=== PATIENT | female | born 1950 | race Caucasian/White ===

== ENCOUNTER → 2024-03-25 11:20 | Outpatient (REF) | payer MEDICARE, BC, SELFPAY ==
[2024-03-25 14:08] LABS: % Basophils 0.7 % (0-2); % Eosinophils 0.7 % (0-6); % Immature Granulocytes 0.4 % (0-0.5); % Lymphocytes 25.1 % (20.5-51.1); % Monocytes 9.4 % (1.7-9.3); % Neutrophils 63.7 % (42.2-75.2); Absolute Lymphocytes 1.4 10^3/uL (1.2-3.4); Absolute Monocytes 0.5 10^3/uL (0.1-0.6); Absolute Neutrophils 3.6 10^3/uL (1.4-6.5); Hemoglobin 13.9 g/dL (12.0-16.0); Mean Corp Hgb Conc. 33.1 g/dL (33.0-37.0); Mean Corpuscular Hgb 32.3 pg (27.0-31.0); Mean Corpuscular Volume 97.7 fL (81.0-99.0); Mean Platelet Volume 10.7 fL (7.4-10.4); Nucleated Red Blood Cells % 0 %; Platelet Count 248 10^3/uL (130-400); White Blood Cell Count 5.7 10^3/uL (4.8-10.8)
[2024-03-25 15:06] LABS: ALT (SGPT) 19 U/L (0-35); AST (SGOT) 28 U/L (14-36); Albumin 4.5 g/dl (3.5-5.0); Alkaline Phosphatase 92 U/L (38-126); Blood Urea Nitrogen 24 mg/dl (7-17); Carbon Dioxide 26 mmol/L (22-30); Chloride 104 mmol/L (98-107); Glucose 82 mg/dl (70-99); Potassium 4.3 mmol/L (3.5-5.1); Sodium 137 mmol/L (135-145); Total Bilirubin 0.8 mg/dl (0.2-1.3); Total Protein 7.3 g/dl (6.3-8.2); eGFR > 60.00
== END ==
LOC: PAVMRI 11:20
PROVIDERS: ATTENDING PHYSICIAN Internal Medicine Rheumatology; REFERRING PHYSICIAN Internal Medicine
DX: M25.561 Pain in right knee (principal); G62.9 Polyneuropathy, unspecified; M25.562 Pain in left knee; M79.641 Pain in right hand; M81.0 Age-related osteoporosis without current pathological fracture; Z51.81 Encounter for therapeutic drug level monitoring
CPT/HCPCS: 36415; 73721; 80053; 85025

== ENCOUNTER 2024-07-18 17:24 | Inpatient (IN) | payer MEDICARE, BC, SELFPAY ==
[2024-07-18 13:06] VITALS: BP 149/87
[2024-07-18 13:30] LABS: % Basophils 0.7 % (0-2); % Eosinophils 1.2 % (0-6); % Immature Granulocytes 0.3 % (0-0.5); % Lymphocytes 26.4 % (20.5-51.1); % Monocytes 10.7 % (1.7-9.3); % Neutrophils 60.7 % (42.2-75.2); Absolute Basophils 0.1 10^3/uL (0-0.2); Absolute Eosinophils 0.1 10^3/uL (0-0.7); Absolute Lymphocytes 1.8 10^3/uL (1.2-3.4); Absolute Monocytes 0.7 10^3/uL (0.1-0.6); Absolute Neutrophils 4.1 10^3/uL (1.4-6.5); Hematocrit 37.6 % (37.0-47.0); Hemoglobin 12.7 g/dL (12.0-16.0); Mean Corp Hgb Conc. 33.8 g/dL (33.0-37.0); Mean Corpuscular Hgb 32.2 pg (27.0-31.0); Mean Corpuscular Volume 95.4 fL (81.0-99.0); Mean Platelet Volume 10.1 fL (7.4-10.4); Nucleated Red Blood Cells % 0 %; Platelet Count 297 10^3/uL (130-400); Red Blood Cell Count 3.94 10^6/uL (4.20-5.40); Red Cell Dist. Width 11.9 % (11.5-14.5); White Blood Cell Count 6.7 10^3/uL (4.8-10.8)
[2024-07-18 13:49] LABS: ALT (SGPT) 19 U/L (0-35); AST (SGOT) 32 U/L (14-36); Albumin 4.3 g/dl (3.5-5.0); Alkaline Phosphatase 107 U/L (38-126); Blood Urea Nitrogen 13 mg/dl (7-17); Calcium 9.4 mg/dl (8.4-10.2); Carbon Dioxide 24 mmol/L (22-30); Chloride 103 mmol/L (98-107); Glucose 109 mg/dl (70-99); Lipase 116 U/L (23-300); Potassium 3.6 mmol/L (3.5-5.1); Sodium 136 mmol/L (135-145); Total Bilirubin 0.6 mg/dl (0.2-1.3); Total Protein 6.8 g/dl (6.3-8.2); eGFR > 60.00
--- NOTE | 2024-07-18 14:27 | ED.GENMED ---
History of Present Illness
General
Chief Complaint: Abdominal Pain
Time Seen by Provider: 07/18/24 14:22
History of Present Illness
History of Present Illness:
HPI: Patient presents with abdominal pain more so on the right side. It started out in the lower portion of the abdomen but migrated more to the right side. Has been ongoing for the past week. When she presses on the area sometimes it helps her
feel better. Worsens with movement at times. She had some loss of appetite today. She had some loose stool but no true diarrhea.
EXAM:
GENERAL: Well appearing in no distress
HEENT: Moist oral mucosa
CARDIOVASCULAR: No murmurs, normal heart rate, regular rhythm, No chest wall tenderness
PULMONARY: No respiratory distress, breath sounds are clear and equal
ABDOMEN: Soft with no peritoneal signs, mild tenderness in the right lower quadrant tenderness
NEUROLOGIC: Excellent strength all extremities, no coordination deficits
PSYCHIATRIC: Appropriate mental status, normal insight and judgement
EXTREMITIES: Nontender, no edema, moves all extremities equally
SKIN: No rash, no lesions
TIME OF INITIAL ENCOUNTER: 2:30 PM
NUMBER AND COMPLEXITY OF PROBLEMS ADDRESSED AT THE ENCOUNTER
� Chronic conditions affecting care: Has had cholecystectomy
� Acute Exacerbation and/or Progression of Chronic Illness: This is an acute problem
� Differential Diagnosis includes: Appendicitis, oblique muscle strain, viral syndrome, mesenteric adenitis
AMOUNT AND/OR COMPLEXITY OF DATA TO BE REVIEWED AND ANALYZED
� I performed an independent evaluation of and my interpretation is:
EKG:
CT: CT personally viewed and I reviewed and agree with radiologist interpretation
X-rays:
Laboratory Studies: White count normal at 6.7, hemoglobin normal, chemistries including LFTs and lipase are normal
Other:
� Review of other/old records: The patient had colonoscopy in 2021 and had polypectomy at that time
� Clinical information was obtained by an independent historian: I spoke to the at bedside
� Prescriptions/Medications Considered but not given: Considered antibiotics however doubt acute infectious appendicitis at this time we will hold off on antibiotics for now
� Further testing considered but not performed:
RISK OF COMPLICATIONS AND/OR MORBIDITY OR MORTALITY OF PATIENT MANAGEMENT
� Social determinants of health affecting care: Lives at home
� Discussion with other providers: Discussed CT images with Dr. Bansal covering for general surgery�at his request we have added on CA125 and CEA and they will see in the morning; hospitalist for admission
� Escalation of care including admission/observation vs risk of discharge considered: Although lab work normal and her symptoms have been ongoing for a week, she does have some loss of appetite today and she is focally tender in
the right lower quadrant�will obtain CT imaging.
Past History
Past History
ED Past Medical History: None
ED Past Surgical History: Cholecystectomy
Phy Exam
Physical Exam
Physical Exam:
See HPI
Course
Orders/Labs/Results
Orders:
Orders
07/18/24 13:18
Complete Blood Count/With Diff Urgent
Comprehensive Metabolic Panel Urgent
Lipase Urgent
07/18/24 14:32
CT Abd/pelvis W Iv Cont Urgent
Comment:
Reason For Exam: RLQ pain; had cholecystectomy, still has appendix
0.9% Sodium Chloride 1000 ml [Nss] 1,000 ml IV BOLUS
07/18/24 16:40
CA 125 Urgent
CEA Urgent
Abnormal Lab Results
07/18/24
13:18
RBC 3.94 L 10^6/uL
(4.20-5.40)
MCH 32.2 H pg
(27.0-31.0)
Absolute Monos (auto) 0.7 H 10^3/uL
(0.1-0.6)
Monocytes % 10.7 H %
(1.7-9.3)
Glucose 109 H mg/dl
(70-99)
07/18/24 13:18
08/18/24 13:18
Vital Signs
Initial and Last Documented VS:
Initial Vital Signs
Pulse Resp BP Pulse Ox
97 18 149/87 97
07/18/24 13:06 07/18/24 13:06 07/18/24 13:06 07/18/24 13:06
Last Documented Vital Signs
Pulse Resp BP Pulse Ox
80 18 137/60 99
07/18/24 16:11 07/18/24 16:11 07/18/24 16:11 07/18/24 16:11
*Critical Care Note
Total Time (30-74mins, 75-104mins- exclusive of procedures): Not Applicable
ED Attending Note
-
Portions of this chart may have been created with voice recognition software.� Occasional wrong word or��sound alike� substitutions may have occurred due to the inherent limitations of voice recognition software.
Discharge Plan
Departure
Patient Disposition: Admit
Date of Disposition: 07/18/24
Time of Disposition: 16:41
Presentation/result/management discussed w/ accepting MD/DO: Hospitalist
Discharge Problem:
Abnormal CT of the abdomen
Referrals:
Rosario Funes MD [Family Provider] -
Interventions
Interventions:
*General Assessment Last Done: 07/18/24 15:15
*Neglect/Abuse Screening Last Done: 07/18/24 15:16
*ED COVID-19 Vaccine History Last Done: 07/18/24 15:15
Discharge Date and Time
Print Language: CITIZEN OF [place]
[2024-07-18 14:59] VITALS: BMI 26.8
[2024-07-18] MEDS: NSS 1000 IV ×2 (16:06→20:16)
[2024-07-18 16:09] VITALS: BP 137/60
[2024-07-18 16:11] VITALS: BP 137/60
--- NOTE | 2024-07-18 16:43 | W.IMMPOSTOP ---
Addendum entered and electronically signed by Isaiah Bansal MD 07/18/24 17:23:
This note was entered in error (wrong patient).
Original Note:
Surgical Immed Post Op Note
-
Primary Surgeon: Juventino Bansal MD
Child Center Assistant: OFELIA Vasquez
Pre-op Diagnosis: Acute appendicitis
Post-op Diagnosis: Same
Procedure Performed: Laparoscopic appendectomy
Anesthesia Type: GET
Specimen / Cultures: Appendix
Estimated Blood Loss: 7cc
Complications: None
Operative Findings: Markedly inflamed, gangrenous, nonperforated appendix
Patient's family updated.
--- NOTE | 2024-07-18 17:11 | HPS.HSE ---
Family Physician
-
Family Physician: Rosario Funes
Chief Complaint
-
abdominal pain
History of Present Illness
Patient is a 74-year-old female whose had right lower quadrant pain off and on for the past week prior to admission. Over the last 2 to 3 days it has gotten worse. She describes it as sharp pain in the right lower quadrant and when she pushes on
it herself it tends to give some relief. She denies any associated nausea, vomiting, constipation, diarrhea, fever, chills. There is no association with food. She states that she has been keeping up with the [employer] hiking and doing outside
activities. CAT scan done in the emergency room shows concern for possible appendicitis along with possible appendiceal neoplasm. Patient is being admitted.
Medical History
Past Medical History
Past Medical History: Reports Other
Additional Past Medical History:
none
Past Surgical History: Reports Other
Additional Past Surgical History:
cholecystectomy
Social History
Tobacco: Non-smoker
Alcohol: None
Drug: None
Personal:
Living: With Family
Family History
Family History: Other (sister with breast cancer)
Allergies / Home Medications
Allergies reflects when Allergies were last updated in [facility].
Home Medications with original date entered in [facility]
Allergy/Medication List:
Allergies
Allergy/AdvReac Type Severity Reaction Status Date / Time
NKA - No Known Allergies Allergy Mild Unknown Uncoded 07/18/24 13:06
No home medications
Review of Systems
-
History Source: Patient
A 12 point ROS was completed and negative except as noted: Yes
Constitutional: Denies Fever or Chills
EENT: Reports No Symptoms
Respiratory: Denies Cough or Trouble Breathing
Cardiac: Reports No Symptoms; Denies Chest Pain
Abdomen/GI: Reports Abdominal Pain; Denies Nausea, Vomiting, Diarrhea or Constipated
: Reports No Symptoms; Denies Dysuria
Musculoskeletal: Reports No Symptoms
Skin: Reports No Symptoms; Denies Rash
Neurological: Reports No Symptoms; Denies Dizzy, Headache or Weakness
Endocrine: Reports No Symptoms
Hematologic/Lymphatic: Reports No Symptoms
Psych: Reports No Symptoms
Physical Exam
Vital Signs
Vital Signs
Pulse Resp BP Pulse Ox
80 18 137/60 99
07/18/24 16:11 07/18/24 16:11 07/18/24 16:11 07/18/24 16:11
Physical Exam
General: Well Developed, Well Nourished and No Apparent Distress
HEENT: NormoCephalic, Anicteric and Atraumatic
Respiratory: Clear; No Wheezes, Rales, Rhonchi or Crackles
Cardiac: S1/S2 and Regular Rhythm; No Murmur
GI: Soft, Non Distended, Normal Bowel Sounds and Tender (RLQ with guarding)
Musculoskeletal: No Clubbing, No Cyanosis and No Edema
Skin: Warm, Dry and Other (think skin with some bruising)
Neuro: Awake and Alert
Psych: Calm
Laboratory Results
-
07/18/24 13:18
07/18/24 13:18
Laboratory Results
Total Bilirubin 0.6 mg/dl (0.2-1.3) 07/18/24 13:18
AST 32 U/L (14-36) 07/18/24 13:18
ALT 19 U/L (0-35) 07/18/24 13:18
Alkaline Phosphatase 107 U/L (38-126) 07/18/24 13:18
Lipase 116 U/L (23-300) 07/18/24 13:18
Impression/Plan
-
Patient is a 74-year-old female
Right lower quadrant abdominal pain--there is concern for appendicitis given the CAT scan findings with mildly dilated appendix and associated stranding--however, cannot rule out appendiceal neoplasm with prominent peritoneal soft tissue nodules
concern for peritoneal carcinomatosis--ADMIT--NPO/IVF--surgery consult--hold on abx for now, if spikes fever would start zosyn--tumor markers pending--pain control
RML nodule -- 6mm on CT scan--may need dedicated CT scan for staging if proves to be malignancy and onc consult--otherwise, would follow up as outpt
DVT prophylaxis--lovenox
code status -- FULL CODE
[2024-07-18 17:24] VITALS: BP 146/67
[2024-07-18 18:34] VITALS: BP 163/82
[2024-07-18] MEDS: LOVENOX 40 MG SC (20:16)
[2024-07-18 22:48] VITALS: BP 140/77
[2024-07-19 06:00] VITALS: BMI 26.0
[2024-07-19] MEDS: NSS 1000 IV ×2 (06:02→18:40)
[2024-07-19 06:48] LABS: Hematocrit 34.2 % (37.0-47.0); Hemoglobin 11.6 g/dL (12.0-16.0); Mean Corp Hgb Conc. 33.9 g/dL (33.0-37.0); Mean Corpuscular Volume 97.2 fL (81.0-99.0); Mean Platelet Volume 10.7 fL (7.4-10.4); Platelet Count 240 10^3/uL (130-400); Red Blood Cell Count 3.52 10^6/uL (4.20-5.40); White Blood Cell Count 5.1 10^3/uL (4.8-10.8)
[2024-07-19 07:10] LABS: ALT (SGPT) 16 U/L (0-35); AST (SGOT) 27 U/L (14-36); Albumin 3.6 g/dl (3.5-5.0); Alkaline Phosphatase 93 U/L (38-126); Blood Urea Nitrogen 9 mg/dl (7-17); Calcium 8.8 mg/dl (8.4-10.2); Carbon Dioxide 23 mmol/L (22-30); Chloride 109 mmol/L (98-107); Estimated Creatinine Clearance 62 ml/min; Glucose 86 mg/dl (70-99); Magnesium 2.2 mg/dl (1.6-2.3); Potassium 4.1 mmol/L (3.5-5.1); Sodium 138 mmol/L (135-145); Total Bilirubin 0.6 mg/dl (0.2-1.3); eGFR > 60.00
[2024-07-19 07:38] VITALS: BP 138/85
--- NOTE | 2024-07-19 09:36 | CM ---
Patient seen at bedside with physician. Patient states that she lives with her of 56 years in a 2 story home with no DME. Patient PCP is Dr. Funes and she uses [facility]. Patient states that she is planning to go home with no
needs. Patient pending further testing and plan is for discharge home with no needs pending medical treatment plan. CM will continue to follow for discharge planning needs.
Plan; home with no needs vs home with VN
--- NOTE | 2024-07-19 09:42 | W.PN.HOSP.TC ---
Today's Communication/Plan
-
apprec surgery
repeat CT scan as per surgery
Assessment / Plan
Assessment / Plan
pt is a 74 year old female
Right lower quadrant abdominal pain--there is concern for appendicitis given the CAT scan findings with mildly dilated appendix and associated stranding--however, cannot rule out appendiceal neoplasm with prominent peritoneal soft tissue nodules
concern for peritoneal carcinomatosis---NPO/IVF--apprec surgery consult--hold on abx for now, if spikes fever would start zosyn--tumor markers pending--pain control--repeat CT scan with ORAL contrast today.....
RML nodule -- 6mm on CT scan--may need dedicated CT scan for staging if proves to be malignancy and onc consult--otherwise, would follow up as outpt
DVT prophylaxis--lovenox
code status -- FULL CODE
Anticipated Discharge: > 48 hours
Subjective/Interval History
-
Date of Service: July 19, 2024
pt printing gray cloth tender RLQ
Objective Data
-
Labs:
Laboratory Results
07/19/24
06:11
WBC 5.1
Hgb 11.6 L
Hct 34.2 L
Plt Count 240
Sodium 138
Potassium 4.1
Chloride 109 H
Carbon Dioxide 23
BUN 9
Creatinine 0.7
Glucose 86
Calcium 8.8
Total Bilirubin 0.6
AST 27
ALT 16
Alkaline Phosphatase 93
Vital Signs:
max temp for 24 hours
07/18/24
22:48
Temp 98.4 F
Vital Signs
Temp Pulse Resp BP Pulse Ox
98.8 F 69 17 138/85 96
07/19/24 07:38 07/19/24 07:38 07/19/24 07:38 07/19/24 07:38 07/19/24 07:38
I&O
07/18/24 07/19/24 07/20/24
06:59 06:59 06:59
Intake Total 900 / 900
Balance 900 / 900
Review of Systems
-
All other systems: Reviewed and negative
Abdomen/GI: Reports Abdominal Pain
Physical Exam
-
General: Well Developed, Well Nourished and No Apparent Distress
HEENT: Normocephalic and Atraumatic
Respiratory: Clear to Auscultation; Negative Wheezes or Rhonchi
Cardiac: Regular Rhythm and S1/S2; Negative Murmur
GI: Soft, Nondistended, Normal Bowel Sounds and Tender (guarding and rebound RLQ with palpation)
Musculoskeletal: No Clubbing, No Cyanosis and No Edema
Neuro: Awake and Alert
[2024-07-19] MEDS: OMNIPAQUE 50 ML PO (11:23)
--- NOTE | 2024-07-19 11:50 | CON.CRS ---
Consultation
-
Date/Time Consultation Requested: 07/18/2024, 18:14
Date/Time Consultation Performed: 07/19/2024, 09:00
Requesting Provider: Em Bynum MD
Performing Provider: William Rajan MD
Reason for Consultation: dilated appendix
Medical History
-
Chief Complaint: RLQ abdominal pain
History of Present Illness:
74 yo female, with a PMH of osteoarthritis, presents to [facility] ER complaining of RLQ pain for the past week, worsening in the past three days. She states it is sharp in nature and is relieved when she presses on it. She also admits to
several weeks of crampy pelvic pain as well as fecal urgency. She denies nausea or vomiting, fevers, or chills.
Previously she underwent a cholecystectomy about 20 years ago. Her last colonoscopy was on 03/27/[address] Walsh which showed one 5mm polyp in the cecum (hyperplastic), diverticulosis in the sigmoid colon, descending colon and transverse colon,
and hemorrhoids.
In the ER her WBC was normal. Her vitals remain normal. CT A/P with IV contrast shows a mildly dilated appendix with associated surrounding stranding. There is a 2.4 x by 2.0 cm more discrete nodular focus at its base. There are numerous additional
prominent peritoneal soft tissue nodules measuring 2.6 cm. Consolation of findings is suspicious for peritoneal carcinomatosis with possible appendiceal neoplasm. There is possible superimposed appendicitis. 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
There is a 2.0 cm hypodensity within the left ovary other this most likely represents a cyst.
Given these findings, we have been consulted for further surgical opinion.
Past Medical History
Past Medical History: Other (osteoarthritis)
Past Surgical History: Cholecystectomy (20 years ago)
Social History
Tobacco: Non-Smoker
Alcohol: None
Drug: None
Personal:
Allergies / Home Medications
Allergy/AdvReac Type Severity Reaction Status Date / Time
NKA - No Known Allergies Allergy Mild Unknown Uncoded 07/18/24 13:06
�Medication �Instructions �Recorded �Confirmed �Type
alendronate 70 mg tablet (Fosamax) 70 mg PO FUNES 07/18/24 07/18/24 History
cholecalciferol (vitamin D3) 25 25 mcg PO DAILY 07/18/24 07/18/24 History
mcg (1,000 unit) chewable tablet
(Vitamin D3)
multivitamin with minerals-folic 1 tab PO DAILY 07/18/24 07/18/24 History
acid 80 mcg chewable tablet
Review of Systems
-
History Source: Patient
All other systems: Negative unless noted
Abdomen/GI: Abdominal Pain (RLQ pain) and Other (abdominal cramping)
: Urgency
A 10 point review of systems was completed, and was negative except as per HPI.
Physical Exam
Vital Signs
Temp 98.8 F 07/19/24 07:38
Pulse 69 07/19/24 07:38
Resp Rate 17 07/19/24 07:38
Blood pressure 138/85 07/19/24 07:38
SaO2 96 07/19/24 07:38
07/18/24 07/19/24 07/20/24
06:59 06:59 06:59
Actual Weight 70.942 kg
Body Mass Index (BMI) 26.0
Lab Results / Allergies
07/19/24 06:11
07/19/24 06:11
WBC 5.1 10^3/uL (4.8-10.8) 07/19/24 06:11
Hgb 11.6 g/dL (12.0-16.0) L 07/19/24 06:11
Hct 34.2 % (37.0-47.0) L 07/19/24 06:11
Plt Count 240 10^3/uL (130-400) 07/19/24 06:11
Abs Immat Gran (auto) 0.0 10^3/uL (0-0.05) 07/18/24 13:18
Neutrophils % 60.7 % (42.2-75.2) 07/18/24 13:18
Allergy/AdvReac Type Severity Reaction Status Date / Time
NKA - No Known Allergies Allergy Mild Unknown Uncoded 07/18/24 13:06
Physical Exam
General: Well Developed and Well Nourished
GI: Soft, Non Distended and Tender (RLQ - mild to moderate pain)
Skin: Warm and Dry
Neuro: AO x 3
Data Reviewed
-
CT Scan: Image Personally Visualized and interpreted, Report Reviewed by me and Discussed with Patient
Labs: Labs Reviewed by me, Discussed with Physician and Discussed with Patient
Old Records: Reviewed
Assessment / Plan
-
Assessment: 74yo female with RLQ abdominal pain for the past week presents to the ER given worsening pain, CT A/P shows ?peritoneal carcinomatosis with possible appendiceal neoplasm
Plan:
-Given finding on CT, will reorder CT A/P with po contrast
-CEA level added on to labwork
-NPO status for now until CT completed
-Further plans to follow
[2024-07-19 15:06] VITALS: BP 138/80
[2024-07-19] MEDS: LOVENOX 40 MG SC (18:38)
--- NOTE | 2024-07-19 19:31 | W.PN.UPDATE ---
Update Note
Progress Note Update
Spoke with patient and patient's spouse; updated on results of CT, specifically, the enteric contrast highlighted the right colon and confirmed that the appendiceal swelling does seem consistent with a mass, which is concerning for cancer; okay for
clears, ordered n.p.o. at midnight and will consult IR for possible IR guided biopsies; due to RLQ stranding and RLQ tenderness, will start zosyn for c/f of superimposed appendicitis
[2024-07-19 20:41] LABS: CEA 3.42 ng/ml
[2024-07-19] MEDS: ZOSYN 50 IV (21:06)
[2024-07-19 22:50] VITALS: BP 143/76
--- NOTE | 2024-07-19 23:30 | TRANSFER ---
Telephone report to Christina AGUERO. Pt transferred to 2S in bed with all personal belongings.
[2024-07-19 23:33] VITALS: BMI 26.7
[2024-07-20] VITALS (9 sets, daily range): BP systolic 76–163; BP diastolic 63–86; BMI 26.7
[2024-07-20] MEDS: ZOSYN 50 IV ×4 (01:53→20:19)
[2024-07-20] MEDS: NSS 1000 IV ×2 (05:00→10:52)
[2024-07-20 08:29] LABS: Hematocrit 36.4 % (37.0-47.0); Hemoglobin 12.4 g/dL (12.0-16.0); Mean Corp Hgb Conc. 34.1 g/dL (33.0-37.0); Mean Corpuscular Hgb 32.7 pg (27.0-31.0); Mean Platelet Volume 10.6 fL (7.4-10.4); Platelet Count 268 10^3/uL (130-400); Red Blood Cell Count 3.79 10^6/uL (4.20-5.40); Red Cell Dist. Width 11.9 % (11.5-14.5); White Blood Cell Count 5.3 10^3/uL (4.8-10.8)
[2024-07-20 08:41] LABS: ALT (SGPT) 16 U/L (0-35); AST (SGOT) 27 U/L (14-36); Blood Urea Nitrogen 8 mg/dl (7-17); Calcium 9.1 mg/dl (8.4-10.2); Chloride 105 mmol/L (98-107); Estimated Creatinine Clearance 60 ml/min; Glucose 79 mg/dl (70-99); Magnesium 2.3 mg/dl (1.6-2.3); Potassium 3.8 mmol/L (3.5-5.1); Sodium 137 mmol/L (135-145); Total Bilirubin 0.8 mg/dl (0.2-1.3); Total Protein 6.1 g/dl (6.3-8.2); eGFR > 60.00
[2024-07-20 08:55] LABS: Albumin 3.8 g/dl (3.5-5.0); Alkaline Phosphatase 97 U/L (38-126); Carbon Dioxide 21 mmol/L (22-30)
--- NOTE | 2024-07-20 08:59 | W.PN.CRS1 ---
Today's Communication / Plan
-
as below
Assessment/Plan
-
74-year-old female with PMH of osteoporosis and cholecystectomy 20 years ago who presents for a couple weeks of crampy pelvic pain associated with fecal urgency, 7 to 10 days of right lower quadrant abdominal pain that got worse over the last 2 to 3
days, WBC 6.7, CT showing dilated appendix with mild amount of stranding, 2.4 cm nodule at the base of the appendix concerning for a mass, multiple mesenteric nodules concerning for carcinomatosis; her last colonoscopy was in 03/[address] Walsh,
which showed a 5 mm inflammatory polyp in the cecum, diverticulosis and hemorrhoids, recommended to repeat in 5 years
AFVSS
WBC 5.1
� Appendicitis versus appendiceal mass associated with mesenteric nodules concerning for carcinomatosis
�CEA 3.4 and CA125 8.0
�Repeat CT with oral contrast confirms appendiceal mass
�Mesenteric nodules appear accessible by IR; will discuss with IR for possible biopsy
-Cont IV zosyn for 10 days for likely superimposed appendicitis
� Keep n.p.o. in case of possible IR procedure; if no procedure today, okay for clear liquids
� DVT PPx with Lovenox
� Pain management with Tylenol, Toradol and morphine as needed
� Appreciate hospitalist
Subjective Data
Subjective Data
Date of Service: July 20, 2024
No overnight events.
Pain somewhat better.
Denies nausea/vomiting
+BMs +voiding
Pt is OOB to the bathroom
Objective Data
-
Vital Signs
Temp Pulse Resp BP Pulse Ox
98.0 F 74 14 146/82 94
07/20/24 07:03 07/20/24 07:03 07/20/24 07:03 07/20/24 07:03 07/20/24 07:03
Intake & Output
08/19/24 08/20/24 08/21/24
06:59 06:59 06:59
Intake Total 900 / 900 850 / 850
Output Total 500 / 500
Balance 900 / 900 350 / 350
Intake:
IV fluids (Total) 900 / 900 800 / 800
IV piggybacks 50 / 50
Output:
Urine, Voided 500 / 500
Other:
Number of approximated MODERATE 3 1
amounts of urine
How many times incontinent 4
SMALL amount urine
Lab Results
07/20/24 07:39
07/20/24 07:39
Physical Exam
-
General: No Acute Distress and AOx3
Abdomen: Soft, Non Distended, Tender (Mildly to moderately tender in the RLQ, improved from yesterday), No Guarding and No Rebound
Skin: Warm and Dry
Data Reviewed
-
CT Scan: Image Reviewed
[2024-07-20 11:16] LABS: INR 1.03; PT 13.3 Sec (11.4-14.6)
[2024-07-20] MEDS: D5/0.45%NSS with KCL 20 MEQ 1000 IV (14:35)
--- NOTE | 2024-07-20 14:42 | PTCARENOTE ---
Patient to IR in stretcher with volunteer
[2024-07-20] MEDS: LOVENOX 40 MG SC (17:09)
--- NOTE | 2024-07-20 17:11 | PTCARENOTE ---
Patient received from IR in stretcher; Patient ambulated to room; RLQ puncture site C/D/I, bandaid present; Patient denies N/V at this time; Patient denies pain at this time; Call pacheco within reach; Spouse at bedside; Bed in lowest position, wheels
locked; Assessment ongoing
--- NOTE | 2024-07-20 17:32 | W.PN.HOSP.TC ---
Today's Communication/Plan
-
additional workup with CT scan as well as abnormal tumor markers indicative of likely appendiceal mass with possibly over imposing appendicitis. For interventional radiology biopsy on 07/20. Continue antibiotics to complete 10-day course. May need
oncology consultation prior to discharge.
Assessment / Plan
Assessment / Plan
pt is a 74 year old female
Right lower quadrant abdominal pain--there is concern for appendicitis given the CAT scan findings with mildly dilated appendix and associated stranding--however, cannot rule out appendiceal neoplasm with prominent peritoneal soft tissue nodules
concern for peritoneal carcinomatosis---NPO/IVF--apprec surgery consult--hold on abx for now, if spikes fever would start zosyn--tumor markers pending--pain control--additional workup with CT scan as well as abnormal tumor markers indicative of
likely appendiceal mass with possibly over imposing appendicitis. For interventional radiology biopsy on 07/20. Continue antibiotics to complete 10-day course. May need oncology consultation prior to discharge.
RML nodule -- 6mm on CT scan--may need dedicated CT scan for staging if proves to be malignancy and onc consult--otherwise, would follow up as outpt
DVT prophylaxis--lovenox
code status -- FULL CODE
Anticipated Discharge: 24 - 48 hours
Subjective/Interval History
-
Date of Service: July 20, 2024
Objective Data
-
Labs:
Laboratory Results
07/20/24 07/20/24
07:39 10:53
WBC 5.3
Hgb 12.4
Hct 36.4 L
Plt Count 268
PT 13.3
INR 1.03
Sodium 137
Potassium 3.8
Chloride 105
Carbon Dioxide 21 L
BUN 8
Creatinine 0.7
Glucose 79
Calcium 9.1
Total Bilirubin 0.8
AST 27
ALT 16
Alkaline Phosphatase 97
Vital Signs:
Vital Signs
Temp Pulse Resp BP Pulse Ox
98.2 F 69 12 149/84 99
07/20/24 17:06 07/20/24 17:06 07/20/24 17:06 07/20/24 17:06 07/20/24 17:06
I&O
07/19/24 07/20/24 07/21/24
06:59 06:59 06:59
Intake Total 900 / 900 850 / 850 100 / 100
Output Total 500 / 500
Balance 900 / 900 350 / 350 100 / 100
Physical Exam
-
General: Well Developed, Well Nourished and No Apparent Distress
HEENT: Normocephalic and Atraumatic
Respiratory: Clear to Auscultation; Negative Wheezes or Rhonchi
Cardiac: Regular Rhythm and S1/S2; Negative Murmur
GI: Soft, Nondistended, Normal Bowel Sounds and Tender (guarding and rebound RLQ with palpation)
Musculoskeletal: No Clubbing, No Cyanosis and No Edema
Neuro: Awake and Alert
[2024-07-21] VITALS (8 sets, daily range): BP systolic 101–150; BP diastolic 65–93; BMI 26.6
[2024-07-21] MEDS: D5/0.45%NSS with KCL 20 MEQ 1000 IV ×2 (00:30→09:56)
[2024-07-21] MEDS: ZOSYN 50 IV ×4 (02:05→20:47)
--- NOTE | 2024-07-21 03:16 | DOWNTIME ---
There was a [employer] Downtime on 07/21/2024 from 0100 to 07/21/2024 at 0252. Downtime documentation of patient's care, including medication administrations, has been reconciled in the electronic record per guidelines. Refer to the
patient's paper chart under the miscellaneous tab to see printed paper medication records and downtime forms.
[2024-07-21 06:43] LABS: % Basophils 0.8 % (0-2); % Eosinophils 2.9 % (0-6); % Immature Granulocytes 0.2 % (0-0.5); % Monocytes 11.3 % (1.7-9.3); % Neutrophils 59.8 % (42.2-75.2); Absolute Eosinophils 0.2 10^3/uL (0-0.7); Absolute Lymphocytes 1.3 10^3/uL (1.2-3.4); Absolute Monocytes 0.6 10^3/uL (0.1-0.6); Absolute Neutrophils 3.1 10^3/uL (1.4-6.5); Hematocrit 34.9 % (37.0-47.0); Hemoglobin 11.9 g/dL (12.0-16.0); Mean Corp Hgb Conc. 34.1 g/dL (33.0-37.0); Mean Corpuscular Hgb 32.2 pg (27.0-31.0); Mean Corpuscular Volume 94.6 fL (81.0-99.0); Mean Platelet Volume 10.7 fL (7.4-10.4); Nucleated Red Blood Cells % 0 %; Platelet Count 281 10^3/uL (130-400); Red Blood Cell Count 3.69 10^6/uL (4.20-5.40); Red Cell Dist. Width 11.9 % (11.5-14.5); White Blood Cell Count 5.2 10^3/uL (4.8-10.8)
[2024-07-21 07:04] LABS: Blood Urea Nitrogen 7 mg/dl (7-17); Calcium 9.2 mg/dl (8.4-10.2); Carbon Dioxide 23 mmol/L (22-30); Chloride 105 mmol/L (98-107); Estimated Creatinine Clearance 52 ml/min; Glucose 119 mg/dl (70-99); Potassium 4.2 mmol/L (3.5-5.1); Sodium 137 mmol/L (135-145); eGFR > 60.00
--- NOTE | 2024-07-21 11:14 | W.PN.CRS1 ---
Today's Communication / Plan
-
OR tomorrow
bowel prep today
clears today, npo at midnight
Assessment/Plan
-
74-year-old female with PMH of osteoporosis and cholecystectomy 20 years ago who presents for a couple weeks of crampy pelvic pain associated with fecal urgency, 7 to 10 days of right lower quadrant abdominal pain that got worse over the last 2 to 3
days, WBC 6.7, CT showing dilated appendix with mild amount of stranding, 2.4 cm nodule at the base of the appendix concerning for a mass, multiple mesenteric nodules concerning for carcinomatosis; her last colonoscopy was in 03/[address] Walsh,
which showed a 5 mm inflammatory polyp in the cecum, diverticulosis and hemorrhoids, recommended to repeat in 5 years
AFVSS
WBC 5.2
� Appendicitis versus appendiceal mass associated with mesenteric nodules concerning for carcinomatosis
�CEA 3.4 and CA125 8.0
�Repeat CT with oral contrast confirms appendiceal mass
�IR biopsy pending
-Cont IV zosyn for 10 days for likely superimposed appendicitis
� Long discussion with Dr. Bansal, patient, and . Plan for tomorrow for an ileocecectomy. Start mag citrate bowel prep this afternoon. IVFs and clear liquid diet today. NPO at midnight.
� DVT PPx with Lovenox - hold today for OR tomorrow
� Pain management with Tylenol, Toradol and morphine as needed
- CT chest with IV contrast today for metastatic work up
� Appreciate hospitalist
Subjective Data
Subjective Data
Date of Service: July 21, 2024
Patient states she has a bad night. She is having bowel movements that are loose. She still has right lower quadrant pain. She is tolerating a diet.
Objective Data
-
Vital Signs
Temp Pulse Resp BP Pulse Ox
97.8 F 70 16 143/78 97
07/21/24 07:25 07/21/24 07:25 07/21/24 07:25 07/21/24 07:25 07/21/24 07:25
Intake & Output
07/20/24 07/21/24 07/22/24
06:59 06:59 06:59
Intake Total 850 / 850 1680 / 1680 50 / 50
Output Total 500 / 500
Balance 350 / 350 1680 / 1680 50 / 50
Intake:
Oral fluids 480 / 480
IV fluids (Total) 800 / 800 1100 / 1100
IV piggybacks 50 / 50 100 / 100 50 / 50
Output:
Urine, Voided 500 / 500
Other:
Number of approximated MODERATE 1 3 2
amounts of urine
How many times incontinent 4
SMALL amount urine
Lab Results
07/21/24 05:11
07/21/24 05:11
Physical Exam
-
General: No Acute Distress and AOx3
Abdomen: Soft, Non Distended and Tender (RLQ)
Skin: Warm and Dry
[2024-07-21] MEDS: CITROMA 300 ML PO (13:21)
--- NOTE | 2024-07-21 13:34 | W.PN.HOSP.TC ---
Today's Communication/Plan
-
Antibiotics
N.p.o. postmidnight
Hold p.m. Lovenox.
To OR on 07/22
Assessment / Plan
Assessment / Plan
pt is a 74 year old female
Presentation with right lower quadrant pain.
Initial concern for appendicitis
Additional workup including CT scan with concern for appendiceal mass.
Carcinoembryonic antigen 3.42
Ca125 8.0.
Status post peritoneal lymph node biopsy on 07/[address] chest pending as a part of workup for metastatic disease
For ileocecectomy on 07/22.
With concern for appendiceal mass and superimposing infection/appendicitis plan is to complete 10-day course of antibiotics, currently on Zosyn.
Diet has been advanced with plan for n.p.o. postmidnight for OR.
Oncology consulted
RML nodule -- 6mm on CT scan--CT chest pending
DVT prophylaxis--lovenox
code status -- FULL CODE
Anticipated Discharge: > 48 hours
Subjective/Interval History
-
Date of Service: July 21, 2024
Objective Data
-
Labs:
Laboratory Results
07/21/24
05:11
WBC 5.2
Hgb 11.9 L
Hct 34.9 L
Plt Count 281
Sodium 137
Potassium 4.2
Chloride 105
Carbon Dioxide 23
BUN 7
Creatinine 0.8
Glucose 119 H
Calcium 9.2
Vital Signs:
Vital Signs
Temp Pulse Resp BP Pulse Ox
98.0 F 76 16 140/85 98
07/21/24 11:00 07/21/24 11:00 07/21/24 11:00 07/21/24 11:00 07/21/24 11:00
I&O
07/20/24 07/21/24 07/22/24
06:59 06:59 06:59
Intake Total 850 / 850 1679 / 1679 50 50
Output Total 500 / 500
Balance 350 / 350 1679 / 1679
Physical Exam
-
General: Well Developed, Well Nourished and No Apparent Distress
HEENT: Normocephalic and Atraumatic
Respiratory: Clear to Auscultation; Negative Wheezes or Rhonchi
Cardiac: Regular Rhythm and S1/S2; Negative Murmur
GI: Soft, Nondistended, Normal Bowel Sounds and Tender (guarding and rebound RLQ with palpation)
Musculoskeletal: No Clubbing, No Cyanosis and No Edema
Neuro: Awake and Alert
--- NOTE | 2024-07-21 13:39 | CON.ONC ---
Impression
Impression
appendiceal mass w/ peritoneal nodularity
Plan
Plan
1. Appendiceal mass w/ peritoneal nodularity - These radiographic findings are concerning for malignancy. The patient underwent initial IR guided biopsy yesterday w/ pathology pending. An appendectomy w/ ileocecectomy is planned for tomorrow, w/ Dr.
Rolf, which may provide additional tissue for pathologic assessment and surgical staging. Will await pathology and surgical findings. CT chest pending.
Will continue to follow with you.
Patient History
History of Present Illness
74y/o female seen in oncology consultation today regarding appendiceal mass w/ prominent peritoneal soft tissue nodules, concerning for neoplasm.
The patient presented to the [facility] ER w/ abdominal pain. Initial CT imaging revealed mildly dilated appendix with associated surrounding stranding, and a 2.4 x by 2.0 cm more discrete nodular focus at its base. Numerous additional
prominent peritoneal soft tissue nodules measuring 2.6 cm were appreciated, suspicious for peritoneal carcinomatosis with possible appendiceal neoplasm. There is possible superimposed appendicitis. Additional source includes RADIOLOGY PHYSICIAN etiology. There is a
2.0 cm hypodensity within the left ovary other this most likely represents a cyst.
CT guided biopsy of peritoneal nodule was performed on 07/20 w/ pathology pending. She was seen by colorectal surgery, Dr. Bansal and due to concerning appendiceal findings, a appendectomy w/ ileocecectomy is planned for tomorrow.
A staging CT chest is pending.
Clinically, the patient feels slightly better. She notes continue RLQ discomfort. No nausea or vomiting, fevers or chills. No SOB or chest pain.
Past-Medical/Surgical History
PMH:
none
PSH:
cholecystectomy
SH: no tobacco, no ETOH
FH: non-contributory
Allergies: NKDA
Patient Medication
�Medication �Instructions �Recorded �Confirmed �Last Taken �Type
alendronate 70 mg tablet (Fosamax) 70 mg PO FUNES osteoporosis 07/18/24 07/18/24 07/18/24 History
cholecalciferol (vitamin D3) 25 25 mcg PO DAILY Supplement 07/18/24 07/18/24 Unknown History
mcg (1,000 unit) chewable tablet
(Vitamin D3)
multivitamin with minerals-folic 1 tab PO DAILY Supplement 07/18/24 07/18/24 Unknown History
acid 80 mcg chewable tablet
Active Medications
Generic Name Dose Route Start Last Admin
Trade Name Freq PRN Reason Stop Dose Admin
Acetaminophen 650 mg 07/18/24 18:14
Acetaminophen 325 Mg Tablet PO 08/15/24 18:13
Q4HPRN PRN
mild pain/ESTRADA/temp> 100.4F
Bisacodyl 10 mg 07/18/24 18:14
Bisacodyl 10 Mg Rectal Suppository RECTAL 08/15/24 18:13
[id number] PRN
constipation
Enoxaparin Sodium 40 mg 07/18/24 18:14 07/20/24 17:09
Enoxaparin Sodium 40 Mg/0.4 Ml Syringe SC 08/15/24 18:13 40 mg
QPM FELY Administration
Piperacillin Sod/Tazobactam Sod 3.375 gram in 50 mls @ 100 mls/hr 07/19/24 20:00 07/21/24 13:21
Zosyn IV 50 mls
Q6H FELY Administration
Potassium Chloride/Dextrose/Sod Cl 20 meq in 1,000 mls @ 100 mls/hr 07/20/24 14:00 07/21/24 09:56
D5/0.45%Nss With Kcl 20 Meq IV 1,000 mls
.Q10H FELY Administration
Ketorolac Tromethamine 10 mg 07/18/24 18:14
Ketorolac 15 Mg/Ml Injection IV 07/23/24 18:13
Q6HPRN PRN
moderate pain
Magnesium Citrate 300 ml 07/21/24 14:20 07/21/24 13:21
Magnesium Citrate Oral Solution 300 Ml Bottle PO 07/21/24 14:21 300 ml
ONCE ONE Administration
Morphine Sulfate 2 mg 07/18/24 18:14
Morphine 2 Mg/Ml Syringe IV 08/01/24 18:13
Q4HPRN PRN
severe pain
Ondansetron HCl 4 mg 07/18/24 18:14
Ondansetron 4 Mg/2 Ml Vial IV 08/15/24 18:13
Q6HPRN PRN
nausea and vomiting
Polyethylene Glycol 17 grams 07/18/24 18:14
Polyethylene Glycol Powder 17 Grams Packet PO 08/15/24 18:13
DAILYPRN PRN
constipation
Senna/Docusate Sodium 1 tablet 07/18/24 18:14
Docusate W/Senna (Brooke-Colace) Tablet PO 08/15/24 18:13
BIDPRN PRN
constipation
Sodium Chloride 0 flush 07/18/24 19:00
Sodium Chloride 0.9% (Flush) Syringe IV 08/15/24 18:59
PER PROTOCOL FELY
Review of Systems
-
A ROS was performed w/ pertinent findings as per HPI.
Physical Exam
-
General: Well Developed, Well Nourished and No Apparent Distress
HEENT: Negative Jaundice
Cardiology: Normal Sinus Rhythm
Pulmonary: Clear
GI: Soft and Other (some tenderness)
Extremities: Negative Edema
Neurology: Non Focal
Labs
Lab Results
WBC 5.2 10^3/uL (4.8-10.8) 07/21/24 05:11
RBC 3.69 10^6/uL (4.20-5.40) L 07/21/24 05:11
Hgb 11.9 g/dL (12.0-16.0) L 07/21/24 05:11
Hct 34.9 % (37.0-47.0) L 07/21/24 05:11
MCV 94.6 fL (81.0-99.0) 07/21/24 05:11
MCH 32.2 pg (27.0-31.0) H 07/21/24 05:11
MCHC 34.1 g/dL (33.0-37.0) 07/21/24 05:11
RDW 11.9 % (11.5-14.5) 07/21/24 05:11
Plt Count 281 10^3/uL (130-400) 07/21/24 05:11
MPV 10.7 fL (7.4-10.4) H 07/21/24 05:11
Abs Immat Gran (auto) 0.0 10^3/uL (0-0.05) 07/21/24 05:11
Absolute Neuts (auto) 3.1 10^3/uL (1.4-6.5) 07/21/24 05:11
Absolute Lymphs (auto) 1.3 10^3/uL (1.2-3.4) 07/21/24 05:11
Absolute Monos (auto) 0.6 10^3/uL (0.1-0.6) 07/21/24 05:11
Absolute Eos (auto) 0.2 10^3/uL (0-0.7) 07/21/24 05:11
Absolute Basos (auto) 0.0 10^3/uL (0-0.2) 07/21/24 05:11
Immature Gran % 0.2 % (0-0.5) 07/21/24 05:11
Neutrophils % 59.8 % (42.2-75.2) 07/21/24 05:11
Lymphocytes % 25.0 % (20.5-51.1) 07/21/24 05:11
Monocytes % 11.3 % (1.7-9.3) H 07/21/24 05:11
Eosinophils % 2.9 % (0-6) 07/21/24 05:11
Basophils % 0.8 % (0-2) 07/21/24 05:11
Creatinine 0.8 mg/dL (0.6-1.0) 07/21/24 05:11
Vital Signs
Vital Signs
Temp Pulse Resp BP Pulse Ox
98.0 F 76 16 140/85 98
07/21/24 11:00 07/21/24 11:00 07/21/24 11:00 07/21/24 11:00 07/21/24 11:00
[2024-07-22] VITALS (17 sets, daily range): BP systolic 107–155; BP diastolic 58–92; BMI 26.1
[2024-07-22] MEDS: ZOSYN 50 IV ×4 (01:39→20:24)
[2024-07-22] MEDS: D5/0.45%NSS with KCL 20 MEQ 1000 IV (01:45)
[2024-07-22 06:50] LABS: % Basophils 0.7 % (0-2); % Immature Granulocytes 0.2 % (0-0.5); % Lymphocytes 26.1 % (20.5-51.1); % Monocytes 10.4 % (1.7-9.3); % Neutrophils 58.6 % (42.2-75.2); Absolute Eosinophils 0.2 10^3/uL (0-0.7); Absolute Lymphocytes 1.5 10^3/uL (1.2-3.4); Absolute Monocytes 0.6 10^3/uL (0.1-0.6); Absolute Neutrophils 3.4 10^3/uL (1.4-6.5); Hematocrit 37.6 % (37.0-47.0); Hemoglobin 12.8 g/dL (12.0-16.0); Mean Corpuscular Hgb 32.7 pg (27.0-31.0); Mean Corpuscular Volume 96.2 fL (81.0-99.0); Mean Platelet Volume 10.5 fL (7.4-10.4); Nucleated Red Blood Cells % 0 %; Platelet Count 275 10^3/uL (130-400); Red Blood Cell Count 3.91 10^6/uL (4.20-5.40); White Blood Cell Count 5.8 10^3/uL (4.8-10.8)
[2024-07-22 06:57] LABS: APTT 31.9 Sec (23.4-35.0); INR 1.01; PT 13.3 Sec (11.4-14.6)
[2024-07-22 07:16] LABS: Blood Urea Nitrogen 5 mg/dl (7-17); Calcium 9.6 mg/dl (8.4-10.2); Carbon Dioxide 20 mmol/L (22-30); Chloride 106 mmol/L (98-107); Estimated Creatinine Clearance 52 ml/min; Glucose 120 mg/dl (70-99); Potassium 3.7 mmol/L (3.5-5.1); Sodium 137 mmol/L (135-145); eGFR > 60.00
[2024-07-22] MEDS: D5/0.45%NSS with KCL 20 MEQ IV (09:40)
--- NOTE | 2024-07-22 14:21 | W.OR.COLCA ---
Colon Cancer Post Op Note
Immediate Post Op
Primary Surgeon: Juventino Bansal MD
Press Operator Assistant: FACUNDO Lipscomb
Pre-op Diagnosis: Metastatic appendiceal cancer
Post-op Diagnosis: Same
Procedure Performed: Robotic ileocolectomy and partial omentectomy
Anesthesia Type: GET
Specimen / Cultures: Right colon
Portion of omentum
Estimated Blood Loss: 15cc
Complications: None
Operative Findings: Small volume carcinomatosis (mostly omentum)
Mass at the base of the cecum/appendix
Isoperistaltic intracorporeal anastomosis
Patient's updated.
Colon Resection
Colon Resection
Operation performed with curative intent: No
Tumor Location: Cecum (appendiceal)
Right Hemicolectomy: Ileocolic
--- NOTE | 2024-07-22 15:12 | W.PN.HOSP.TC ---
Today's Communication/Plan
-
OR
Assessment / Plan
Assessment / Plan
pt is a 74 year old female
Presentation with right lower quadrant pain.
Initial concern for appendicitis
Additional workup including CT scan with concern for appendiceal mass.
Carcinoembryonic antigen 3.42
Ca125 8.0.
Status post peritoneal lymph node biopsy on 07/[address] chest pending as a part of workup for metastatic disease
Status post robotic ileocolectomy and partial laminectomy. Operative findings with small volume carcinomatosis (mostly omentum). Mass at the base of the cecum/appendix. Isoperistaltic intracorporeal anastomosis.
With concern for appendiceal mass and superimposing infection/appendicitis plan is to complete 10-day course of antibiotics, currently on Zosyn.
Postoperative care
Oncology consulted
RML nodule -- 6mm on CT scan--CT chest pending
DVT prophylaxis--lovenox
code status -- FULL CODE
Anticipated Discharge: > 48 hours
Subjective/Interval History
-
Date of Service: July 22, 2024
Objective Data
-
Labs:
Laboratory Results
07/22/24
06:29
WBC 5.8
Hgb 12.8
Hct 37.6
Plt Count 275
PT 13.3
INR 1.01
APTT 31.9
Sodium 137
Potassium 3.7
Chloride 106
Carbon Dioxide 20 L
BUN 5 L
Creatinine 0.8
Glucose 120 H
Calcium 9.6
Vital Signs:
Vital Signs
Temp Pulse Resp BP Pulse Ox
97.1 F 66 15 123/62 95
07/22/24 14:45 07/22/24 15:00 07/22/24 15:00 07/22/24 15:00 07/22/24 15:00
I&O
07/21/24 07/22/24 07/23/24
06:59 06:59 06:59
Intake Total 1679 / 0 2500 / 2500 150 / 150
Output Total 225 / 225
Balance 1679 / 0 2500 / 2500 -75 / -75
Physical Exam
-
General: Well Developed, Well Nourished and No Apparent Distress
HEENT: Normocephalic and Atraumatic
Respiratory: Clear to Auscultation; Negative Wheezes or Rhonchi
Cardiac: Regular Rhythm and S1/S2; Negative Murmur
GI: Soft, Nondistended, Normal Bowel Sounds and Tender (guarding and rebound RLQ with palpation)
Musculoskeletal: No Clubbing, No Cyanosis and No Edema
Neuro: Awake and Alert
[2024-07-22] MEDS: NORMOSOL-R/PLASMALYTE-A 1000 IV ×2 (15:18→23:59)
[2024-07-22] MEDS: TORADOL 15 MG IV ×2 (15:19→21:30)
[2024-07-22] MEDS: ERYTHROMYCIN 0.5% OPHTHALMIC OINTMENT 1 APPLIC OPHTH ×2 (15:25→21:29)
--- NOTE | 2024-07-22 15:25 | SUR.PHASEI ---
Dr. Payan notified pt with complaint of right eye irritation. Erythromycin ointment ordered by Dr. Payan and administered as ordered
--- NOTE | 2024-07-22 16:15 | PTCARENOTE ---
Pt received from the PACU via Bed. Transport was w/o incident. Pt is AAOx3, HRR, lungs sounds are decreased in the bases b/l and clear, pulse ox is 98% RA, resp. easy. Abd with surgical lap. sites well approximated with surgi glue, no drainage
noted. Pt denies nausea or pain at this time. VSS, Pt is afebrile. Pt instructed on plan of care. Pt verbalized understanding of instructions.
[2024-07-22] MEDS: NORMOSOL-R/PLASMALYTE-A IV (23:53)
[2024-07-23] MEDS: NORMOSOL-R/PLASMALYTE-A 1000 IV (00:01)
[2024-07-23] MEDS: ZOSYN 50 IV ×2 (01:11→08:15)
[2024-07-23] MEDS: TORADOL 15 MG IV ×3 (03:11→17:17)
[2024-07-23 03:17] VITALS: BP 121/59
[2024-07-23 05:37] VITALS: BMI 26.5
[2024-07-23 07:47] LABS: Hematocrit 35.9 % (37.0-47.0); Hemoglobin 12.3 g/dL (12.0-16.0); Mean Corp Hgb Conc. 34.3 g/dL (33.0-37.0); Mean Corpuscular Hgb 32.9 pg (27.0-31.0); Platelet Count 290 10^3/uL (130-400); Red Blood Cell Count 3.74 10^6/uL (4.20-5.40); Red Cell Dist. Width 11.9 % (11.5-14.5)
[2024-07-23 07:58] VITALS: BP 119/59
[2024-07-23 08:02] LABS: Blood Urea Nitrogen 11 mg/dl (7-17); Calcium 8.8 mg/dl (8.4-10.2); Carbon Dioxide 21 mmol/L (22-30); Chloride 104 mmol/L (98-107); Estimated Creatinine Clearance 52 ml/min; Glucose 100 mg/dl (70-99); Potassium 4.2 mmol/L (3.5-5.1); Sodium 140 mmol/L (135-145); eGFR > 60.00
[2024-07-23] MEDS: TYLENOL 650 MG PO (08:13)
[2024-07-23] MEDS: ERYTHROMYCIN 0.5% OPHTHALMIC OINTMENT 1 APPLIC OPHTH (08:15)
--- NOTE | 2024-07-23 08:51 | W.PN.ONC ---
Documented by User: [email or web address] Crane 07/23/24 09:55
Today's Communication / Plan
-
07/18/24 CEA 3.42, CA-125: 8
07/21/24 CT chest: No evidence of acute or metastatic disease of the chest.Stable probable benign pulmonary nodule versus pleural thickening.Tiny pericardial effusion versus pericardial thickening. Subcentimeter hypodense right thyroid lesion likely
a benign nodule. This would better be evaluated by a dedicated thyroid ultrasound if not previously performed. Prior cholecystectomy. Stable Pneumobilia likely due to prior sphincterotomy
07/[address] s[address]-guided biopsy in IR of peritoneal mass
Pathology: benign-appearing fat and fibrovascular tissue with bland mesothelium and minimal nonspecific inflammation
Report printed and reviewed with patient/spouse
07/23 POD#1 s/p ileocolectomy and partial omentectomy w/ Dr. Bansal. EBL 15
Intraoperative findings: Small volume carcinomatosis (mostly omentum). Mass at the base of the cecum/appendix. Isoperistaltic intracorporeal anastomosis
Pathology pending
OOB activity encouraged
Supportive care, pain management
Await pathology of right colon
Will continue to follow.
Impression
Impression
appendiceal mass w/ peritoneal nodularity
Subjective/Objective
Subjective/Objective
patient resting comfortably in bed. she denies pain. she is eager to get OOB and ambulate this morning.
Vital Signs:
Vital Signs
Temp Pulse Resp BP Pulse Ox
98.6 F 76 18 119/59 95
07/23/24 07:58 07/23/24 07:58 07/23/24 07:58 07/23/24 07:58 07/23/24 07:58
physical exam:
aaox3, pleasant/cooperative
HRR, lungs clear on RA
abdomen soft, lap sites CDI
no edema
Lab Results:
Laboratory Data
WBC 10.0 10^3/uL (4.8-10.8) 07/23/24 06:00
Hgb 12.3 g/dL (12.0-16.0) 07/23/24 06:00
Plt Count 290 10^3/uL (130-400) 07/23/24 06:00
PT 13.3 Sec (11.4-14.6) 07/22/24 06:29
INR 1.01 07/22/24 06:29
APTT 31.9 Sec (23.4-35.0) 07/22/24 06:29
eGFR > 60.00 07/23/24 06:00

Documented by User: Damien Carmona MD 07/23/24 12:11
Plan
Plan
Oncology Addendum:
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
-appendiceal mass/ carcinomatosis
-pathology from IR guided biopsy of peritoneal nodule - non-malignant
-s/p ileocolectomy and partial omentectomy yesterday
-await pathology
--- NOTE | 2024-07-23 10:13 | W.PN.CRS1 ---
Today's Communication / Plan
-
Diet advancement
Lovenox
DC antibiotics after this afternoon's dose
OR and IR pathology pending
Assessment/Plan
-
74-year-old female with PMH of osteoporosis and cholecystectomy 20 years ago who presents for a couple weeks of crampy pelvic pain associated with fecal urgency, 7 to 10 days of right lower quadrant abdominal pain that got worse over the last 2 to 3
days, WBC 6.7, CT showing dilated appendix with mild amount of stranding, 2.4 cm nodule at the base of the appendix concerning for a mass, multiple mesenteric nodules concerning for carcinomatosis; her last colonoscopy was in 03/[address] Walsh,
which showed a 5 mm inflammatory polyp in the cecum, diverticulosis and hemorrhoids, recommended to repeat in 5 years
AFVSS
WBC 10.0
POD#1 Robotic ileocolectomy and partial omentectomy
� Appendicitis versus appendiceal mass associated with mesenteric nodules concerning for carcinomatosis
�CEA 3.4 and CA125 8.0
�IR biopsy pending
-IV Zosyn discontinued after this afternoon's dose. No need for outpatient antibiotics.
�Start Lovenox for DVT prophylaxis. Teds and SCDs in place.
�Pain management with Tylenol, Toradol and morphine as needed
-Start on a clear liquid diet today. If tolerates may advance to full liquids. If having flatus can then advance to low residue.
-DC Moss
-OR pathology pending
-Okay to shower okay for discharge when she is tolerating a low residue diet.
Subjective Data
Procedure
07/22/2024- Robotic ileocolectomy and partial omentectomy
Subjective Data
Date of Service: July 23, 2024
Patient states that she is feeling well. Her pain is controlled. Her main complaint is that she had a bad sleep last night in the hospital bed. She has no nausea or vomiting. She is not hungry. She has some mild right lower quadrant tenderness.
Objective Data
-
Vital Signs
Temp Pulse Resp BP Pulse Ox
98.6 F 76 18 119/59 95
07/23/24 07:58 07/23/24 07:58 07/23/24 07:58 07/23/24 07:58 07/23/24 07:58
Intake & Output
07/22/24 07/23/24 07/24/24
06:59 06:59 06:59
Intake Total 2500 / 2500 1630 / 1630
Output Total 675 / 675
Balance 2500 / 2500 955 / 955
Intake:
Oral fluids 80 / 80
IV fluids (Total) 2300 / 2300 1400 / 1400
Normosol 200 / 200
IV piggybacks 200 / 200 150 / 150
Output:
Urine, Moss 675 / 675
Other:
Number of approximated SMALL 2
amounts of urine
Number of approximated MODERATE 2
amounts of urine
Lab Results
07/23/24 06:00
07/23/24 06:00
Physical Exam
-
General: No Acute Distress and AOx3
Abdomen: Soft, Non Distended and Tender (mild RLQ (improved))
Skin: Warm and Dry
Incision: Clear, Dry, Intact
[2024-07-23] MEDS: ERYTHROMYCIN 0.5% OPHTHALMIC OINTMENT OPHTH ×2 (11:08→17:17)
[2024-07-23 11:35] VITALS: BP 127/70
--- NOTE | 2024-07-23 13:47 | W.DS.TRANS ---
DC Summary - Oil Mixer
-
Discharge Instructions:
Discharge Diagnosis/Procedures Appendiceal mass
Diet Low Residue
Activity No strenuous activity
Additional Activity No lifting over 10 pounds (gallon of milk)
Driving Restrictions No driving for 1 week
Bathing Restrictions OK to Shower
Wound Care Allow glue to naturally fall off. Do not pick
at incisions.
Instructions: Low Fiber Diet
Stand-Alone Forms:
Changes to Home Medications: No
Discharge Medications:
DC Medications w/original date entered in [facility]
alendronate 70 mg tablet (Fosamax) 70 mg PO FUNES osteoporosis 07/18/24
cholecalciferol (vitamin D3) 25 mcg (1,000 unit) chewable tablet (Vitamin D3) 25 mcg PO DAILY Supplement 07/18/24
multivitamin with minerals-folic acid 80 mcg chewable tablet 1 tab PO DAILY Supplement 07/18/24
oxycodone 5 mg tablet 5 mg PO Q6H PRN Pain #20 tabs 07/23/24
Home Medication Changes
Pending Results: Yes
Additional Pending Results:
Pathology
--- NOTE | 2024-07-23 14:24 | CM ---
Met with patient at bedside to discuss discharge plan
IMM benefit form explained; form signed @ [id number]
Patient reported that will provide transportation home
Plan: discharge to home today if she tolerated diet; no needs
[2024-07-23] MEDS: ZOSYN IV (14:33)
[2024-07-23 15:20] VITALS: BP 138/78
--- NOTE | 2024-07-23 20:45 | PTCARENOTE ---
Pt was d/c on dayshift she got the OK to shower before leaving, family came to take her home. I went over her discharge instructions with her & gave her a copy to take with her. Pt's IV had been taken out by her dayshift nurse. The pt was wheeled
out by a PCT with family members by her side at 20:45 to return to her home.
== END 2024-07-23 20:45 | disposition home or self-care (01) | DRG 330 ==
LOC: 2 SOUTH 17:24
PROVIDERS: Emergency Medicine; Physician Assistant; Radiology Vascular & Interventional Radiology; Surgery; ADMITTING PHYSICIAN Internal Medicine; ATTENDING PHYSICIAN Internal Medicine; CONSULT PHYSICIAN Internal Medicine Hematology & Oncology; EMERGENCY PHYSICIAN Emergency Medicine; FAMILY PHYSICIAN Internal Medicine; OTHER PHYSICIAN Surgery
PROC: 0DBW3ZX Excision of Peritoneum, Percutaneous Approach, Diagnostic (ICD-10-PCS; 2024-07-20)
PROC: 8E0W4CZ Robotic Assisted Procedure of Trunk Region, Percutaneous Endoscopic Approach (ICD-10-PCS; 2024-07-22)
PROC: 0DBU4ZZ Excision of Omentum, Percutaneous Endoscopic Approach (ICD-10-PCS; 2024-07-22)
PROC: 0DTF4ZZ Resection of Right Large Intestine, Percutaneous Endoscopic Approach (ICD-10-PCS; 2024-07-22)
DX: C18.1 Malignant neoplasm of appendix (principal); C78.6 Secondary malignant neoplasm of retroperitoneum and peritoneum; M81.0 Age-related osteoporosis without current pathological fracture; Z90.49 Acquired absence of other specified parts of digestive tract
CPT/HCPCS: 88305; 88307; 88309; 49180; 71260; 74177; 77012; 80048; 80053; 82378; 83690; 83735; 85025; 85027; 85610; 85730; 86304; 86850; 86900; 86901; 88333; 88334; 88342; 99152; 99153; 99285; Q9967

== ENCOUNTER → 2024-08-24 12:48 | Outpatient (REF) | payer MEDICARE, BC, SELFPAY | LOC: SDSPAT 12:48 | PROVIDERS: ATTENDING PHYSICIAN Surgery; FAMILY PHYSICIAN Internal Medicine | DX: C18.1 Malignant neoplasm of appendix (principal) | CPT/HCPCS: 36415; 93005 ==

== ENCOUNTER 2024-08-25 06:30 | Day surgery (SDC) | payer MEDICARE, BC, SELFPAY ==
[2024-08-24 13:01] VITALS: BMI 25.4
[2024-08-25 08:06] VITALS: BMI 25.4
[2024-08-25 08:07] VITALS: BP 129/79
[2024-08-25] MEDS: TYLENOL 1000 MG PO (08:15)
[2024-08-25] MEDS: NORMOSOL-R/PLASMALYTE-A 1000 IV (08:16)
[2024-08-25 10:25] VITALS: BP 129/91
[2024-08-25 10:30] VITALS: BP 106/65
== END 2024-08-25 11:30 | disposition home or self-care (01) ==
LOC: SDS 06:30
PROVIDERS: ATTENDING PHYSICIAN Surgery; FAMILY PHYSICIAN Internal Medicine
DX: C18.1 Malignant neoplasm of appendix (principal)
CPT/HCPCS: 36561; 71045; 76000; C1788

== ENCOUNTER → 2024-08-30 10:29 | Outpatient (REF) | payer MEDICARE, BC, SELFPAY ==
[2024-08-30 11:18] LABS: % Basophils 0.5 % (0-2); % Eosinophils 6.8 % (0-6); % Immature Granulocytes 0.3 % (0-0.5); % Lymphocytes 26.1 % (20.5-51.1); % Monocytes 9.1 % (1.7-9.3); % Neutrophils 57.2 % (42.2-75.2); Absolute Eosinophils 0.4 10^3/uL (0-0.7); Absolute Lymphocytes 1.6 10^3/uL (1.2-3.4); Absolute Monocytes 0.6 10^3/uL (0.1-0.6); Absolute Neutrophils 3.5 10^3/uL (1.4-6.5); Hematocrit 38.5 % (37.0-47.0); Hemoglobin 12.5 g/dL (12.0-16.0); Mean Corp Hgb Conc. 32.5 g/dL (33.0-37.0); Mean Corpuscular Hgb 30.6 pg (27.0-31.0); Mean Corpuscular Volume 94.4 fL (81.0-99.0); Mean Platelet Volume 10.3 fL (7.4-10.4); Nucleated Red Blood Cells % 0 %; Platelet Count 292 10^3/uL (130-400); Red Blood Cell Count 4.08 10^6/uL (4.20-5.40); White Blood Cell Count 6.1 10^3/uL (4.8-10.8)
[2024-08-30 11:42] LABS: ALT (SGPT) 46 U/L (0-35); AST (SGOT) 53 U/L (14-36); Albumin 4.3 g/dl (3.5-5.0); Alkaline Phosphatase 137 U/L (38-126); Blood Urea Nitrogen 15 mg/dl (7-17); Calcium 9.7 mg/dl (8.4-10.2); Carbon Dioxide 24 mmol/L (22-30); Chloride 101 mmol/L (98-107); Glucose 99 mg/dl (70-99); Potassium 4.3 mmol/L (3.5-5.1); Sodium 141 mmol/L (135-145); Total Bilirubin 0.6 mg/dl (0.2-1.3); eGFR > 60.00
== END ==
LOC: REG 10:29
PROVIDERS: ATTENDING PHYSICIAN Internal Medicine Hematology & Oncology; FAMILY PHYSICIAN Internal Medicine
DX: C18.1 Malignant neoplasm of appendix (principal)
CPT/HCPCS: 36415; 80053; 85025

== ENCOUNTER → 2024-09-11 10:58 | Outpatient (REF) | payer MEDICARE, BC, SELFPAY ==
[2024-09-11 12:16] LABS: ALT (SGPT) 31 U/L (0-35); AST (SGOT) 52 U/L (14-36); Alkaline Phosphatase 187 U/L (38-126); Blood Urea Nitrogen 10 mg/dl (7-17); Calcium 9.3 mg/dl (8.4-10.2); Carbon Dioxide 26 mmol/L (22-30); Chloride 100 mmol/L (98-107); Glucose 126 mg/dl (70-99); Potassium 2.8 mmol/L (3.5-5.1); Sodium 140 mmol/L (135-145); Total Bilirubin 0.2 mg/dl (0.2-1.3); Total Protein 6.5 g/dl (6.3-8.2); eGFR > 60.00
[2024-09-11 12:17] LABS: Hematocrit 36.4 % (37.0-47.0); Mean Corpuscular Hgb 30.7 pg (27.0-31.0); Mean Corpuscular Volume 93.1 fL (81.0-99.0); Mean Platelet Volume 10.6 fL (7.4-10.4); Platelet Count 162 10^3/uL (130-400); Red Blood Cell Count 3.91 10^6/uL (4.20-5.40); Red Cell Dist. Width 13.2 % (11.5-14.5)
[2024-09-11 12:46] LABS: Absolute Neutrophils -Man Diff 14.5 10^3/uL (1.4-6.5); Band Neutrophils 10 % (0-3); Eosinophils 1 % (0-6); Lymphocytes 22 % (20-51); Monocytes 9 % (2-9); Segmented Neutrophils 48 % (42-75)
[2024-09-11 12:47] LABS: Hypochromasia Slight; Metamyelocytes 5 % (-); Myelocytes 5 % (-); Normal RBC Morphology No; Platelets Checked Yes; Polychromasia Slight; Total Cells Counted 100
== END ==
LOC: REG 10:58
PROVIDERS: ATTENDING PHYSICIAN Internal Medicine Hematology & Oncology; FAMILY PHYSICIAN Internal Medicine
DX: C18.1 Malignant neoplasm of appendix (principal)
CPT/HCPCS: 36415; 80053; 85025

== ENCOUNTER 2024-09-14 22:47 | Observation (INO) | payer MEDICARE, BC, SELFPAY ==
[2024-09-14] VITALS (10 sets, daily range): BP systolic 103–145; BP diastolic 53–87; BMI 24.2
--- NOTE | 2024-09-14 16:00 | ED.GENMED ---
History of Present Illness
<Magaly Rodriguez PA-C - Last Filed: 09/14/24 19:22>
General
Chief Complaint: Allergic Reaction
Source: patient
Exam Limitations: none
Time Seen by Provider: 09/14/24 15:59
Nursing documentation reviewed up to this point in time: agreed with
History of Present Illness
History of Present Illness:
74-year-old female with a past medical history of appendiceal cancer presents emergency department today with concerns of shortness of breath and hypoxia. Patient is currently undergoing treatment with her cancer with a drug called FOLFOX. This is
the second time she has received this treatment. She was supposed to go home on a pump infusion of the medication, but she is not sure what this medication is supposed to be. She did also receive a potassium infusion prior to this medication
today. Patient reports that as a treatment was finishing up, she was sleeping the infusion room when she started to become short of breath, her voice became hoarse, she felt like her throat was closing up. Patient states that she was given 2 IM
injections of epi to maintain her respiratory symptoms, as well as 40 mg of Pepcid, 125 of Solu-Medrol, 2 albuterol puffs. a rapid response was called the transfusion center. Upon arrival to emergency department, she is on 4 L satting 98%. She
does not wear oxygen at baseline. Patient denies abdominal pain, nausea, vomiting, chest pain, fevers or chills. Patient states that she is felt well the past few days. Patient has never had issues with this medication in the past. Patient
follows with Dr. Sotelo.
Past History
<Magaly Rodriguez PA-C - Last Filed: 09/14/24 19:22>
Past History
ED Past Medical History: None
ED Past Surgical History: Cholecystectomy
Review of Systems
<Magaly Rodriguez PA-C - Last Filed: 09/14/24 19:22>
Review of Systems
All Other Systems: ROS reviewed and negative except as documented in HPI and ROS
Phy Exam
<Magaly Rodriguez PA-C - Last Filed: 09/14/24 19:22>
Physical Exam
Physical Exam:
General: Patient is well appearing and in no acute distress; non-toxic, voice is hoarse.
Skin: Warm and dry, no rashes or lesions
Head: Normocephalic, atraumatic
Eyes: Sclera non-icteric. EOMs intact. PERRLA.
Mouth: No intraoral lesions, no pharyngeal erythema, no uvular edema
Cardiac: Regular rate and rhythm, no murmurs
Peripheral Vascular: No lower extremity swelling or edema
Pulm: Normal respiratory effort, scattered crackles heard
Neuro: CN II-XII intact, no focal neurologic deficits.
Psychiatric: Appropriate mood and affect.
Course
<Magaly Rodriguez PA-C - Last Filed: 09/14/24 19:22>
Orders/Labs/Results
Orders:
Orders
09/14/24 16:16
Diphenhydramine [Benadryl] 25 mg IV NOW STA
09/14/24 16:23
Ipratropium/Albuterol Sulfate [Duoneb] 3 ml .ROUTE .STK-MED ONE
09/14/24 16:25
Ipratropium/Albuterol Sulfate [Duoneb] 3 ml INH R NOW ONE
09/14/24 17:39
CR Chest - 2 Views Urgent
Comment:
Reason For Exam: hypoxia, SOB
09/14/24 18:08
Complete Blood Count/With Diff Urgent
Comprehensive Metabolic Panel Urgent
Magnesium Urgent
Manual Differential Urgent
09/14/24 18:58
Add On- LAB Urgent
Tests Added?: magnesium
09/14/24 19:20
Electrocardiogram (*1) Urgent
Reason for Study: Shortness of Breath
EKG- Treatment ONCE
09/14/24 20:52
Potassium Chloride [KCl] 40 meq PO NOW STA
Abnormal Lab Results
09/14/24
18:08
WBC 38.7 H 10^3/uL
(4.8-10.8)
RBC 3.53 L 10^6/uL
(4.20-5.40)
Hgb 11.0 L g/dL
(12.0-16.0)
Hct 32.3 L %
(37.0-47.0)
MCH 31.2 H pg
(27.0-31.0)
Plt Count 129 L D 10^3/uL
(130-400)
MPV 10.5 H fL
(7.4-10.4)
Abs Neuts (Manual) 34.4 H 10^3/uL
(1.4-6.5)
Segmented Neutrophils 82 H %
(42-75)
Band Neutrophils 7 H %
(0-3)
Lymphocytes (Manual) 6 L %
(20-51)
Monocytes (Manual) 1 L %
(2-9)
Potassium 2.6 L* mmol/L
(3.5-5.1)
Glucose 209 H mg/dl
(70-99)
AST 51 H U/L
(14-36)
Alkaline Phosphatase 219 H U/L
(38-126)
Total Protein 6.1 L g/dl
(6.3-8.2)
09/14/24 18:08
09/14/24 18:08
Vital Signs
Initial and Last Documented VS:
Initial Vital Signs
Temp Pulse Resp BP Pulse Ox
97.5 F 78 12 145/73 100
09/14/24 15:59 09/14/24 15:59 09/14/24 15:59 09/14/24 15:59 09/14/24 15:59
Last Documented Vital Signs
Temp Pulse Resp BP Pulse Ox
97.5 F 94 29 117/64 95
09/14/24 15:59 09/14/24 18:15 09/14/24 18:15 09/14/24 18:10 09/14/24 19:07
<Issa Huang, DO - Last Filed: 09/14/24 20:55>
Orders/Labs/Results
Orders:
Orders
09/14/24 16:16
Diphenhydramine [Benadryl] 25 mg IV NOW STA
09/14/24 16:23
Ipratropium/Albuterol Sulfate [Duoneb] 3 ml .ROUTE .STK-MED ONE
09/14/24 16:25
Ipratropium/Albuterol Sulfate [Duoneb] 3 ml INH R NOW ONE
09/14/24 17:39
CR Chest - 2 Views Urgent
Comment:
Reason For Exam: hypoxia, SOB
09/14/24 18:08
Complete Blood Count/With Diff Urgent
Comprehensive Metabolic Panel Urgent
Magnesium Urgent
Manual Differential Urgent
09/14/24 18:58
Add On- LAB Urgent
Tests Added?: magnesium
09/14/24 19:20
Electrocardiogram (*1) Urgent
Reason for Study: Shortness of Breath
EKG- Treatment ONCE
09/14/24 20:52
Potassium Chloride [KCl] 40 meq PO NOW STA
Abnormal Lab Results
09/14/24
18:08
WBC 38.7 H 10^3/uL
(4.8-10.8)
RBC 3.53 L 10^6/uL
(4.20-5.40)
Hgb 11.0 L g/dL
(12.0-16.0)
Hct 32.3 L %
(37.0-47.0)
MCH 31.2 H pg
(27.0-31.0)
Plt Count 129 L D 10^3/uL
(130-400)
MPV 10.5 H fL
(7.4-10.4)
Abs Neuts (Manual) 34.4 H 10^3/uL
(1.4-6.5)
Segmented Neutrophils 82 H %
(42-75)
Band Neutrophils 7 H %
(0-3)
Lymphocytes (Manual) 6 L %
(20-51)
Monocytes (Manual) 1 L %
(2-9)
Potassium 2.6 L* mmol/L
(3.5-5.1)
Glucose 209 H mg/dl
(70-99)
AST 51 H U/L
(14-36)
Alkaline Phosphatase 219 H U/L
(38-126)
Total Protein 6.1 L g/dl
(6.3-8.2)
09/14/24 18:08
09/14/24 18:08
Vital Signs
Initial and Last Documented VS:
Initial Vital Signs
Temp Pulse Resp BP Pulse Ox
97.5 F 78 12 145/73 100
09/14/24 15:59 09/14/24 15:59 09/14/24 15:59 09/14/24 15:59 09/14/24 15:59
Last Documented Vital Signs
Temp Pulse Resp BP Pulse Ox
97.5 F 94 29 117/64 95
09/14/24 15:59 09/14/24 18:15 09/14/24 18:15 09/14/24 18:10 09/14/24 19:07
<Magaly Rodriguez PA-C - Last Filed: 09/14/24 19:22>
MDM/Problems Addressed
Differential Diagnosis Includes:
Differentials include allergic reaction, anaphylaxis, pneumonia,
MDM/Problems Addressed:
74-year-old female presents emergency department today following an allergic reaction after transfusion of her new chemotherapeutic agent. Patient is a history of appendiceal cancer. Patient was getting an infusion today when she was going to
leave, she started to develop a sudden onset of shortness of breath, sensation of swelling in her throat, as well as hoarseness of her voice. Patient was given requiring 2 doses of epinephrine injection as well as Pepcid, Solu-Medrol, albuterol.
Patient here emergency department is well-appearing, she no longer complains of shortness of breath, she has no chest tightness, but she does note that is hard to speak and feels that there is hoarseness of her voice. She does have scattered
crackles versus wheezes on exam. She was given a DuoNeb treatment. On reeval elation, her hoarseness has resolved, however when she was weaned to room air, her pulse ox remains around 88%. She had to be placed on 2 L again, however patient
remained asymptomatic at this time. Blood work reveals a potassium of 2.6 despite infusion today, will add on magnesium, will refer for admission for observation in light of allergic reaction as well as critical lab values and persistent hypoxia
with normal chest x-ray.
Chronic conditions affecting care:
Appendiceal cancer
<Magaly Rodriguez PA-C - Last Filed: 09/14/24 19:22>
*Pulse Oximetry
Patient hypoxic: yes
*Critical Care Note
Total Time (30-74mins, 75-104mins- exclusive of procedures): Not Applicable
Data Reviewed
Review of Other/Old Records Reveals: Records (Reviewed discharge summary from 07/23/2024 where patient was found to have abnormal CAT scan of the abdomen, diagnosed with appendiceal cancer a few months ago) and Radiology Studies (Reviewed previous
chest x-ray)
Source: patient and records
<Issa Huang DO - Last Filed: 09/14/24 20:55>
*Radiology
Radiology exam reviewed: radiology read reviewed
*Regenerator Operator Interpretation
Rate: normal
Interpretation: normal
Heart Rate: 78
Rhythm: sinus
<Magaly Rodriguez PA-C - Last Filed: 09/14/24 19:22>
Patient Management
Escalation/DeEscalation of care consider admission/obs:
Patient referred for admission
<Magaly Rodriguez PA-C - Last Filed: 09/14/24 19:22>
Update Note
Update Note:
5:07 pm-- Patient was weaned off of her oxygen and is now on room air, she no longer has coarseness and she was able to ambulate to the bathroom without difficulty. She does however still have crackles/rhonchi heard on exam, will send for CXR, labs.
On numerous reevaluation, patient appears well but is persistent we hypoxic with good waveform at around 88%. She continues to have crackles/wheezes despite DuoNeb treatment. She denies shortness of breath. Will put her on 2 L to maintain sats,
will order chest x-ray, will send off her labs.
ED Attending Note
<Magaly Rodriguez PA-C - Last Filed: 09/14/24 19:22>
-
Portions of this chart may have been created with voice recognition software.� Occasional wrong word or��sound alike� substitutions may have occurred due to the inherent limitations of voice recognition software.
<Issa Huang DO - Last Filed: 09/14/24 20:55>
ED Attending Note
Patient seen and examined by attending physician: Yes
I performed the substantive portion of visit, reviewed & personally made and approve the management plan that is documented in note by myself or CELENA.: Yes
ED Attending Note:
seen with [facility], allergic reaction from [facility], appendiceal CA-Rolf/Deepak-2nd session Folfox today, felt throat tightness, given meds, rapid response, looks ok now, will monitor for reoccurence
Discharge Plan
Departure
Patient Disposition: Admit
Date of Disposition: 09/14/24
Time of Disposition: 19:18
Admit to: Med/Surg
Presentation/result/management discussed w/ accepting MD/DO: Hospitalist
Patient with high blood pressure during this ER visit?: Yes
Condition: Fair
Discharge Problem:
Allergic reaction, Hypoxia, Hypokalemia
Prescriptions:
No Action
multivitamin Tablet
1 tab PO DAILY
Alive Women's 50 Plus Gummy 120 mcg-150 mcg -37.5 mg Tablet,Chewable
1 tab PO DAILY
ondansetron HCl [Zofran] 8 mg Tablet
8 mg PO Q8HPRN PRN (Reason: nausea)
prochlorperazine maleate 10 mg Tablet
10 mg PO Q6HPRN PRN (Reason: nausea)
loratadine [Claritin] 10 mg Tablet
10 mg PO DIRECTED
Patient Comments:
09/14/24: Part of chemo regiment, to take after continuous fluorouracil.
fluorouracil
1 dose IV Q2W
leucovorin calcium solution
1 dose IV Q2W
oxaliplatin solution
1 dose IV Q2W
potassium chloride
1 dose .SEE BELOW
Patient Comments:
09/14/24: Patient had an IV dose today, and was planned to get 20 meq tablets in the future.
Referrals:
UNKNOWN - PT DOES,NOT KNOW [Unknown Provider] -
Interventions
Interventions:
*Risk Screen - Suicide Last Done: 09/14/24 15:59
*General Assessment Last Done: 09/14/24 15:59
*Neglect/Abuse Screening Last Done: 09/14/24 15:59
*ED COVID-19 Vaccine History Last Done: 09/14/24 15:59
ED- Cardiac Assessment Last Done: 09/14/24 16:17
ED- Pulmonary Assessment Last Done: 09/14/24 16:17
Discharge Date and Time
Print Language: GEORGIAN
[2024-09-14] MEDS: BENADRYL 25 MG IV (16:24)
[2024-09-14] MEDS: DUONEB 3 ML INH (16:25)
[2024-09-14 18:45] LABS: Alkaline Phosphatase 219 U/L (38-126); Blood Urea Nitrogen 10 mg/dl (7-17); Carbon Dioxide 22 mmol/L (22-30); Chloride 106 mmol/L (98-107); Estimated Creatinine Clearance 76 ml/min; Glucose 209 mg/dl (70-99); Hematocrit 32.3 % (37.0-47.0); Mean Corp Hgb Conc. 34.1 g/dL (33.0-37.0); Mean Corpuscular Hgb 31.2 pg (27.0-31.0); Mean Corpuscular Volume 91.5 fL (81.0-99.0); Mean Platelet Volume 10.5 fL (7.4-10.4); Platelet Count 129 10^3/uL (130-400); Potassium 2.6 mmol/L (3.5-5.1); Red Blood Cell Count 3.53 10^6/uL (4.20-5.40); Red Cell Dist. Width 13.6 % (11.5-14.5); Sodium 142 mmol/L (135-145); White Blood Cell Count 38.7 10^3/uL (4.8-10.8); eGFR > 60.00
[2024-09-14 18:46] LABS: ALT (SGPT) 32 U/L (0-35); AST (SGOT) 51 U/L (14-36); Absolute Neutrophils -Man Diff 34.4 10^3/uL (1.4-6.5); Albumin 3.8 g/dl (3.5-5.0); Band Neutrophils 7 % (0-3); Calcium 8.9 mg/dl (8.4-10.2); Lymphocytes 6 % (20-51); Metamyelocytes 2 % (-); Monocytes 1 % (2-9); Myelocytes 2 % (-); Segmented Neutrophils 82 % (42-75); Total Bilirubin 0.4 mg/dl (0.2-1.3); Total Protein 6.1 g/dl (6.3-8.2)
[2024-09-14 18:47] LABS: Platelets Checked Yes
[2024-09-14 18:48] LABS: Normal RBC Morphology No; Polychromasia Occasional; Total Cells Counted 100
[2024-09-14 19:37] LABS: Magnesium 1.7 mg/dl (1.6-2.3)
--- NOTE | 2024-09-14 22:23 | HPS.HSE ---
Family Physician
-
Family Physician: Rosario Funes
Chief Complaint
-
Allergic reaction
History of Present Illness
This is a 74-year-old with appendiceal cancer status post bowel resection now chemotherapy who came in status post infusion clinic with allergic/anaphylactic reaction.
Patient was in usual state of health. At the infusion clinic she was received infusion of potassium chloride. She then received FOLFOX. After that she was started on fluorouracil continuous dose to take home for 48 hours. After about 8 minutes
of the fluorouracil running, she suddenly developed chest tightness. She had swelling in her throat as well as hoarseness. Rapid repsonse called to the infusion center, she required 2 doses of epi. She also recieved benadryl, pepcid, solumedrol.
On exam in the ED, she was weaned to 2L, she did have hoarseness which eventually resolved after benadryl, but she does have scattered crackles on exam. Eventually, her SOB resolved, she was taken off oxygen, but she started to become hypoxic again.
She is hemodynamically stable. Satting 97% on 2 L nasal cannula. Chest x-ray is clear. ECG is nonischemic. Labs are notable for a potassium of 2.6 but otherwise unremarkable. CBC is notable for white count of 38.7 which is up from 25 recently.
Medical History
Past Medical History
Past Medical History: Reports Other
Additional Past Medical History:
Appendiceal cancer with carcinomatosis
Past Surgical History: Reports Bowel Resection
Social History
Tobacco: Non-smoker
Alcohol: None
Drug: None
Personal:
Living: With Family
Employment: Retired
Family History
Family History: Not pertinent
Allergies / Home Medications
Allergies reflects when Allergies were last updated in [facility].
Home Medications with original date entered in [facility]
Allergy/Medication List:
Allergies
Allergy/AdvReac Type Severity Reaction Status Date / Time
No Known Allergies Allergy Verified 09/14/24 16:10
Home Medications
[id number] 120 mcg-lutein 150 mcg-herb 37.5 mg chewable tablet (Alive Women's 50 Plus Gummy) 1 tab PO DAILY 08/20/24
multivitamin 1 tab PO DAILY 08/20/24
fluorouracil 1 dose IV Q2W 09/14/24
leucovorin calcium 1 dose IV Q2W 09/14/24
loratadine 10 mg tablet (Claritin) 10 mg PO DIRECTED 09/14/24
ondansetron HCl 8 mg tablet 8 mg PO Q8HPRN PRN nausea 09/14/24
oxaliplatin 1 dose IV Q2W 09/14/24
potassium chloride 1 dose .SEE BELOW 09/14/24
prochlorperazine maleate 10 mg tablet 10 mg PO Q6HPRN PRN nausea 09/14/24
Review of Systems
-
Constitutional: Reports No Symptoms
EENT: Reports No Symptoms
Respiratory: Reports No Symptoms
Cardiac: Reports No Symptoms
Abdomen/GI: Reports Diarrhea
: Reports No Symptoms
Musculoskeletal: Reports No Symptoms
Skin: Reports No Symptoms
Neurological: Reports No Symptoms
Endocrine: Reports No Symptoms
Hematologic/Lymphatic: Reports No Symptoms
Psych: Reports No Symptoms
Physical Exam
Vital Signs
Vital Signs
Temp Pulse Resp BP Pulse Ox
97.5 F 94 29 117/64 95
09/14/24 15:59 09/14/24 18:15 09/14/24 18:15 09/14/24 18:10 09/14/24 19:07
Physical Exam
General: Well Developed, Well Nourished, No Apparent Distress and Comfortable
HEENT: NormoCephalic, Anicteric, Moist mucous membranes and Atraumatic
Respiratory: Clear
Cardiac: S1/S2 and Regular Rhythm
GI: Soft, Non Tender, Non Distended and Normal Bowel Sounds
Rectal: Deferred by Provider
Genito-urinary: Deferred by me
Musculoskeletal: No Clubbing, No Cyanosis and No Edema
Skin: Warm
Neuro: AO x 3
Hematologic/Lymphatic: No Lymphadenopathy
Psych: Calm
Laboratory Results
-
09/14/24 18:08
09/14/24 18:08
Laboratory Results
Total Bilirubin 0.4 mg/dl (0.2-1.3) 09/14/24 18:08
AST 51 U/L (14-36) H 09/14/24 18:08
ALT 32 U/L (0-35) 09/14/24 18:08
Alkaline Phosphatase 219 U/L (38-126) H 09/14/24 18:08
Data Reviewed
-
Diagnostic Radiology: Image Personally Visualized and interpreted
Medical Tests (Nuc Med, Echo, EKG etc): Image Personally Visualized and interpreted
Lab Data: Labs Reviewed by me
Old Records: Reviewed
Impression/Plan
-
IMPRESSION:
Patient receiving chemotherapy with developed acute respiratory distress likely secondary to chemotherapeutic agent. Status post initial stabilization and treatment by team and sent to the ED. In the ED she is satting well on room air. No stridor
no respiratory distress. Chest x-ray is clear. Found to be hypokalemic to 2.6. DC patient with Dr. Deepak ram requests observation overnight.
PLAN:
1. Respiratory distress - Resolved
- monitor on O2 o/n
2. Hypokalemia -
- telemetry
- repeletion overnight to goal K > 3.
- has scripts for oral supplementation at home
- has fluid losses and on chemo which are likely etiology
3. Leukocytosis
- no signs of infection. Has been rising since 09/10 so suspect from prior tx.
- f/u with outpatient oncology
DVT PPX - lovenox sq
Code Status - Full Code
[2024-09-14] MEDS: KCL 270 MEQ IV (23:14)
[2024-09-14] MEDS: KCL 20 MEQ PO (23:15)
[2024-09-15] VITALS (15 sets, daily range): BP systolic 91–130; BP diastolic 52–96
--- NOTE | 2024-09-15 04:02 | DOWNTIME ---
There was a [employer] Client Processing Manager Downtime on 08/18/2024 from 0100 to 08/18/2024 at 0300. Downtime documentation of patient's care, including medication administrations, has been reconciled in the electronic record per guidelines. Refer to the
patient's paper chart under the miscellaneous tab to see printed paper medication records and downtime forms.
[2024-09-15 04:36] LABS: Blood Urea Nitrogen 9 mg/dl (7-17); Calcium 8.6 mg/dl (8.4-10.2); Carbon Dioxide 19 mmol/L (22-30); Chloride 109 mmol/L (98-107); Estimated Creatinine Clearance 76 ml/min; Glucose 152 mg/dl (70-99); Sodium 143 mmol/L (135-145); eGFR > 60.00
--- NOTE | 2024-09-15 04:49 | DOWNTIME ---
There was a [employer] Client Parachute Accessories Attacher Downtime on 09/15/2024 from 0100 to 09/15/2024 at 0355. Downtime documentation of patient's care, including medication administrations, has been reconciled in the electronic record per guidelines. Refer to the
patient's paper chart under the miscellaneous tab to see printed paper medication records and downtime forms.
[2024-09-15 04:57] LABS: Blood Urea Nitrogen 10 mg/dl (7-17); Calcium 9.1 mg/dl (8.4-10.2); Carbon Dioxide 22 mmol/L (22-30); Chloride 108 mmol/L (98-107); Estimated Creatinine Clearance 76 ml/min; Glucose 162 mg/dl (70-99); Potassium 4.5 mmol/L (3.5-5.1); Sodium 142 mmol/L (135-145); eGFR > 60.00
[2024-09-15] MEDS: THERAGRAN 1 TABLET PO (07:57)
--- NOTE | 2024-09-15 13:15 | W.DS.TRANS ---
DC Summary - Employment Representative
-
Discharge Instructions:
Discharge Diagnosis/Procedures Allergic reaction
Diet Regular
Instructions:
Stand-Alone Forms:
Changes to Home Medications: No
Discharge Medications:
DC Medications w/original date entered in [facility]
[id number] 120 mcg-lutein 150 mcg-herb 37.5 mg chewable tablet (Alive Women's 50 Plus Gummy) 1 tab PO DAILY Supplement 08/20/24
multivitamin 1 tab PO DAILY Supplement 08/20/24
fluorouracil 1 dose IV Q2W Cancer 09/14/24
leucovorin calcium 1 dose IV Q2W Cancer 09/14/24
loratadine 10 mg tablet (Claritin) 10 mg PO DIRECTED 09/14/24
ondansetron HCl 8 mg tablet 8 mg PO Q8HPRN PRN nausea 09/14/24
Home Medication Changes
Pending Results: No
--- NOTE | 2024-09-15 13:15 | PTCARENOTE ---
VSS. AOx3. No complaints. R SQ Port accessed. EKG obtained, Dr Lopez reviewed. Discharge orders in.
== END 2024-09-15 15:16 | disposition home or self-care (01) ==
LOC: ED 22:47
PROVIDERS: Physician Assistant; ADMITTING PHYSICIAN Internal Medicine; ATTENDING PHYSICIAN Internal Medicine; EMERGENCY PHYSICIAN Emergency Medicine; FAMILY PHYSICIAN Internal Medicine
DX: T88.6XXA Anaphylactic reaction due to adverse effect of correct drug or medicament properly administered, initial encounter (principal); T45.1X5A Adverse effect of antineoplastic and immunosuppressive drugs, initial encounter; Y65.8 Other specified misadventures during surgical and medical care; Y92.531 Health care provider office as the place of occurrence of the external cause; R06.02 Shortness of breath; R49.0 Dysphonia; R09.02 Hypoxemia; E87.6 Hypokalemia; C18.1 Malignant neoplasm of appendix; C78.6 Secondary malignant neoplasm of retroperitoneum and peritoneum; R09.89 Other specified symptoms and signs involving the circulatory and respiratory systems; R06.2 Wheezing; R07.89 Other chest pain; R06.03 Acute respiratory distress; D72.829 Elevated white blood cell count, unspecified; M41.56 Other secondary scoliosis, lumbar region; R94.31 Abnormal electrocardiogram [ECG] [EKG]; R00.1 Bradycardia, unspecified; Z90.49 Acquired absence of other specified parts of digestive tract
CPT/HCPCS: 71046; 80048; 80053; 83735; 85025; 93005; G0378

== ENCOUNTER → 2024-09-24 10:38 | Outpatient (REF) | payer MEDICARE, BC, SELFPAY ==
[2024-09-24 12:05] LABS: % Basophils 0.6 % (0-2); % Immature Granulocytes 0.3 % (0-0.5); % Lymphocytes 22.9 % (20.5-51.1); % Monocytes 7.6 % (1.7-9.3); % Neutrophils 67.6 % (42.2-75.2); Absolute Lymphocytes 0.7 10^3/uL (1.2-3.4); Absolute Monocytes 0.2 10^3/uL (0.1-0.6); Absolute Neutrophils 2.1 10^3/uL (1.4-6.5); Hematocrit 34.3 % (37.0-47.0); Hemoglobin 11.5 g/dL (12.0-16.0); Mean Corp Hgb Conc. 33.5 g/dL (33.0-37.0); Mean Corpuscular Hgb 32.1 pg (27.0-31.0); Mean Corpuscular Volume 95.8 fL (81.0-99.0); Nucleated Red Blood Cells % 0 %; Platelet Count 154 10^3/uL (130-400); Red Blood Cell Count 3.58 10^6/uL (4.20-5.40); Red Cell Dist. Width 13.1 % (11.5-14.5); White Blood Cell Count 3.1 10^3/uL (4.8-10.8)
[2024-09-24 12:32] LABS: ALT (SGPT) 78 U/L (0-35); AST (SGOT) 64 U/L (14-36); Albumin 4.1 g/dl (3.5-5.0); Alkaline Phosphatase 140 U/L (38-126); Blood Urea Nitrogen 9 mg/dl (7-17); Calcium 9.5 mg/dl (8.4-10.2); Carbon Dioxide 24 mmol/L (22-30); Chloride 104 mmol/L (98-107); Glucose 111 mg/dl (70-99); Potassium 3.8 mmol/L (3.5-5.1); Sodium 140 mmol/L (135-145); Total Bilirubin 0.4 mg/dl (0.2-1.3); Total Protein 6.4 g/dl (6.3-8.2); eGFR > 60.00
== END ==
LOC: REG 10:38
PROVIDERS: ATTENDING PHYSICIAN Internal Medicine Hematology & Oncology; FAMILY PHYSICIAN Internal Medicine
DX: C18.1 Malignant neoplasm of appendix (principal)
CPT/HCPCS: 36415; 80053; 85025

== ENCOUNTER → 2024-10-06 12:00 | Outpatient (REF) | payer MEDICARE, BC, SELFPAY ==
[2024-10-06 12:15] LABS: % Basophils 0.9 % (0-2); % Immature Granulocytes 1.9 % (0-0.5); % Lymphocytes 41.7 % (20.5-51.1); % Monocytes 14.8 % (1.7-9.3); % Neutrophils 37.7 % (42.2-75.2); Absolute Eosinophils 0.1 10^3/uL (0-0.7); Absolute Immature Granulocytes 0.1 10^3/uL (0-0.05); Absolute Lymphocytes 1.8 10^3/uL (1.2-3.4); Absolute Monocytes 0.6 10^3/uL (0.1-0.6); Absolute Neutrophils 1.6 10^3/uL (1.4-6.5); Hemoglobin 11.9 g/dL (12.0-16.0); Mean Corp Hgb Conc. 33.1 g/dL (33.0-37.0); Mean Corpuscular Hgb 32.1 pg (27.0-31.0); Mean Platelet Volume 10.5 fL (7.4-10.4); Platelet Count 102 10^3/uL (130-400); Red Blood Cell Count 3.71 10^6/uL (4.20-5.40); White Blood Cell Count 4.3 10^3/uL (4.8-10.8)
[2024-10-06 13:54] LABS: ALT (SGPT) 49 U/L (0-35); AST (SGOT) 42 U/L (14-36); Albumin 4.5 g/dl (3.5-5.0); Alkaline Phosphatase 169 U/L (38-126); Blood Urea Nitrogen 16 mg/dl (7-17); Calcium 9.5 mg/dl (8.4-10.2); Carbon Dioxide 22 mmol/L (22-30); Chloride 100 mmol/L (98-107); Glucose 119 mg/dl (70-99); Potassium 4.1 mmol/L (3.5-5.1); Sodium 140 mmol/L (135-145); Total Bilirubin 0.4 mg/dl (0.2-1.3); Total Protein 6.9 g/dl (6.3-8.2); eGFR > 60.00
== END ==
LOC: OIDL 12:00
PROVIDERS: ATTENDING PHYSICIAN Internal Medicine Hematology & Oncology
DX: C18.1 Malignant neoplasm of appendix (principal)
CPT/HCPCS: 36415; 80053; 85025

== ENCOUNTER → 2024-10-08 11:24 | Outpatient (REF) | payer MEDICARE, BC, SELFPAY | LOC: RCS 11:24 | PROVIDERS: ATTENDING PHYSICIAN Internal Medicine Hematology & Oncology; FAMILY PHYSICIAN Internal Medicine | DX: C18.1 Malignant neoplasm of appendix (principal) | CPT/HCPCS: 71275; 80053; 85025; 85379; 93005; Q9967 ==

== ENCOUNTER → 2024-10-08 11:25 | Outpatient (REF) | payer MEDICARE, BC, SELFPAY ==
[2024-10-08 12:35] LABS: D-Dimer 3.03 ug/mlFEU (0.00-0.50)
[2024-10-08 12:40] LABS: Hematocrit 36.9 % (37.0-47.0); Hemoglobin 12.2 g/dL (12.0-16.0); Mean Corp Hgb Conc. 33.1 g/dL (33.0-37.0); Mean Corpuscular Hgb 32.2 pg (27.0-31.0); Mean Corpuscular Volume 97.4 fL (81.0-99.0); Platelet Count 143 10^3/uL (130-400); Red Blood Cell Count 3.79 10^6/uL (4.20-5.40); Red Cell Dist. Width 16.6 % (11.5-14.5); White Blood Cell Count 24.4 10^3/uL (4.8-10.8)
[2024-10-08 12:57] LABS: ALT (SGPT) 40 U/L (0-35); AST (SGOT) 52 U/L (14-36); Albumin 4.3 g/dl (3.5-5.0); Alkaline Phosphatase 206 U/L (38-126); Blood Urea Nitrogen 9 mg/dl (7-17); Calcium 9.8 mg/dl (8.4-10.2); Carbon Dioxide 24 mmol/L (22-30); Chloride 99 mmol/L (98-107); Glucose 102 mg/dl (70-99); Potassium 2.8 mmol/L (3.5-5.1); Sodium 140 mmol/L (135-145); Total Bilirubin 0.3 mg/dl (0.2-1.3); Total Protein 6.6 g/dl (6.3-8.2); eGFR > 60.00
[2024-10-08 13:23] LABS: Absolute Neutrophils -Man Diff 14.6 10^3/uL (1.4-6.5); Band Neutrophils 4 % (0-3); Lymphocytes 28 % (20-51); Metamyelocytes 3 % (-); Monocytes 8 % (2-9); Myelocytes 1 % (-); Normal RBC Morphology No; Platelets Checked Yes; Polychromasia Slight; Segmented Neutrophils 56 % (42-75); Total Cells Counted 100
== END ==
LOC: OIDL 11:25
PROVIDERS: ATTENDING PHYSICIAN Internal Medicine Hematology & Oncology
DX: C18.1 Malignant neoplasm of appendix (principal)
CPT/HCPCS: 80053; 85025; 85379

== ENCOUNTER → 2024-10-08 13:40 | Outpatient (REF) | payer MEDICARE, BC, SELFPAY | LOC: HWRAD 13:40 | PROVIDERS: ATTENDING PHYSICIAN Internal Medicine Hematology & Oncology; FAMILY PHYSICIAN Internal Medicine | DX: C18.1 Malignant neoplasm of appendix (principal) | CPT/HCPCS: 71275; Q9967 ==

== ENCOUNTER → 2024-10-23 11:37 | Outpatient (REF) | payer MEDICARE, BC, SELFPAY ==
[2024-10-23 12:37] LABS: Hematocrit 35.6 % (37.0-47.0); Hemoglobin 11.3 g/dL (12.0-16.0); Mean Corp Hgb Conc. 31.7 g/dL (33.0-37.0); Mean Corpuscular Hgb 32.7 pg (27.0-31.0); Mean Corpuscular Volume 102.9 fL (81.0-99.0); Mean Platelet Volume 10.7 fL (7.4-10.4); Platelet Count 150 10^3/uL (130-400); Red Blood Cell Count 3.46 10^6/uL (4.20-5.40); Red Cell Dist. Width 18.6 % (11.5-14.5); White Blood Cell Count 22.2 10^3/uL (4.8-10.8)
[2024-10-23 12:38] LABS: Nucleated Red Blood Cells % 1.4 %
[2024-10-23 12:56] LABS: ALT (SGPT) 71 U/L (0-35); AST (SGOT) 62 U/L (14-36); Albumin 4.1 g/dl (3.5-5.0); Alkaline Phosphatase 200 U/L (38-126); Blood Urea Nitrogen 7 mg/dl (7-17); Calcium 9.8 mg/dl (8.4-10.2); Carbon Dioxide 23 mmol/L (22-30); Chloride 102 mmol/L (98-107); Glucose 108 mg/dl (70-99); Potassium 3.4 mmol/L (3.5-5.1); Sodium 143 mmol/L (135-145); Total Bilirubin 0.4 mg/dl (0.2-1.3); Total Protein 6.5 g/dl (6.3-8.2); eGFR > 60.00
[2024-10-23 13:18] LABS: Absolute Neutrophils -Man Diff 14.4 10^3/uL (1.4-6.5); Band Neutrophils 12 % (0-3); Eosinophils 1 % (0-6); Lymphocytes 22 % (20-51); Metamyelocytes 1 % (-); Monocytes 9 % (2-9); Myelocytes 1 % (-); Nucleated Red Blood Cells 1 (-); Platelets Checked Yes; Promyelocytes 1 % (-); Segmented Neutrophils 53 % (42-75)
[2024-10-23 13:19] LABS: Dohle Bodies 1+; Polychromasia 2+
[2024-10-23 13:20] LABS: Anisocytosis 1+; Hypochromasia Slight; Macrocytosis 2+; Microcytosis 1+; Total Cells Counted 100
[2024-10-23 13:27] LABS: Normal RBC Morphology No
== END ==
LOC: REG 11:37
PROVIDERS: ATTENDING PHYSICIAN Internal Medicine Hematology & Oncology; FAMILY PHYSICIAN Internal Medicine
DX: C18.1 Malignant neoplasm of appendix (principal)
CPT/HCPCS: 36415; 80053; 85025

== ENCOUNTER → 2024-11-06 10:43 | Outpatient (REF) | payer MEDICARE, BC, SELFPAY ==
[2024-11-06 11:57] LABS: Hematocrit 31.5 % (37.0-47.0); Hemoglobin 10.4 g/dL (12.0-16.0); Mean Corpuscular Hgb 33.4 pg (27.0-31.0); Mean Corpuscular Volume 101.3 fL (81.0-99.0); Red Blood Cell Count 3.11 10^6/uL (4.20-5.40); Red Cell Dist. Width 18.4 % (11.5-14.5); White Blood Cell Count 4.3 10^3/uL (4.8-10.8)
[2024-11-06 12:06] LABS: ALT (SGPT) 64 U/L (0-35); AST (SGOT) 49 U/L (14-36); Albumin 3.9 g/dl (3.5-5.0); Alkaline Phosphatase 210 U/L (38-126); Blood Urea Nitrogen 7 mg/dl (7-17); Calcium 9.5 mg/dl (8.4-10.2); Carbon Dioxide 24 mmol/L (22-30); Chloride 102 mmol/L (98-107); Glucose 111 mg/dl (70-99); Potassium 3.6 mmol/L (3.5-5.1); Sodium 138 mmol/L (135-145); Total Bilirubin 0.6 mg/dl (0.2-1.3); Total Protein 6.2 g/dl (6.3-8.2); eGFR > 60.00
[2024-11-06 13:16] LABS: % Basophils 1.8 % (0-2); % Eosinophils 1.2 % (0-6); % Immature Granulocytes 3.7 % (0-0.5); % Lymphocytes 24.2 % (20.5-51.1); % Neutrophils 57.1 % (42.2-75.2); Absolute Basophils 0.1 10^3/uL (0-0.2); Absolute Eosinophils 0.1 10^3/uL (0-0.7); Absolute Immature Granulocytes 0.2 10^3/uL (0-0.05); Absolute Lymphocytes 1.1 10^3/uL (1.2-3.4); Absolute Monocytes 0.5 10^3/uL (0.1-0.6); Absolute Neutrophils 2.5 10^3/uL (1.4-6.5); Nucleated Red Blood Cells % 0.5 %
[2024-11-06 13:17] LABS: Mean Platelet Volume 11.3 fL (7.4-10.4); Platelet Count 94 10^3/uL (130-400)
== END ==
LOC: REG 10:43
PROVIDERS: ATTENDING PHYSICIAN Internal Medicine Hematology & Oncology; FAMILY PHYSICIAN Internal Medicine
DX: C18.1 Malignant neoplasm of appendix (principal)
CPT/HCPCS: 36415; 80053; 85025

== ENCOUNTER → 2024-11-13 10:40 | Outpatient (REF) | payer MEDICARE, BC, SELFPAY ==
[2024-11-13 11:23] LABS: % Basophils 0.5 % (0-2); % Eosinophils 1.8 % (0-6); % Immature Granulocytes 4.8 % (0-0.5); % Lymphocytes 26.8 % (20.5-51.1); % Monocytes 7.4 % (1.7-9.3); % Neutrophils 58.7 % (42.2-75.2); Absolute Basophils 0.1 10^3/uL (0-0.2); Absolute Eosinophils 0.2 10^3/uL (0-0.7); Absolute Immature Granulocytes 0.4 10^3/uL (0-0.05); Absolute Lymphocytes 2.5 10^3/uL (1.2-3.4); Absolute Monocytes 0.7 10^3/uL (0.1-0.6); Absolute Neutrophils 5.4 10^3/uL (1.4-6.5); Hemoglobin 11.1 g/dL (12.0-16.0); Mean Corp Hgb Conc. 32.6 g/dL (33.0-37.0); Mean Corpuscular Hgb 33.5 pg (27.0-31.0); Mean Corpuscular Volume 102.7 fL (81.0-99.0); Mean Platelet Volume 10.6 fL (7.4-10.4); Nucleated Red Blood Cells % 0.2 %; Platelet Count 248 10^3/uL (130-400); Red Blood Cell Count 3.31 10^6/uL (4.20-5.40); Red Cell Dist. Width 19.1 % (11.5-14.5); White Blood Cell Count 9.2 10^3/uL (4.8-10.8)
[2024-11-13 11:47] LABS: ALT (SGPT) 38 U/L (0-35); AST (SGOT) 53 U/L (14-36); Albumin 3.8 g/dl (3.5-5.0); Alkaline Phosphatase 178 U/L (38-126); Blood Urea Nitrogen 9 mg/dl (7-17); Calcium 8.9 mg/dl (8.4-10.2); Carbon Dioxide 25 mmol/L (22-30); Chloride 106 mmol/L (98-107); Glucose 97 mg/dl (70-99); Potassium 3.4 mmol/L (3.5-5.1); Sodium 143 mmol/L (135-145); Total Bilirubin 0.4 mg/dl (0.2-1.3); Total Protein 6.1 g/dl (6.3-8.2); eGFR > 60.00
== END ==
LOC: REG 10:40
PROVIDERS: ATTENDING PHYSICIAN Internal Medicine Hematology & Oncology; FAMILY PHYSICIAN Internal Medicine
DX: C18.1 Malignant neoplasm of appendix (principal)
CPT/HCPCS: 36415; 80053; 85025

== ENCOUNTER → 2024-11-22 16:28 | Outpatient (REF) | payer MEDICARE, BC, SELFPAY | LOC: RAD 16:28 | PROVIDERS: ATTENDING PHYSICIAN Internal Medicine Hematology & Oncology; FAMILY PHYSICIAN Internal Medicine | DX: C18.1 Malignant neoplasm of appendix (principal); E87.6 Hypokalemia | CPT/HCPCS: 71260; 74177; Q9967 ==

== ENCOUNTER → 2025-02-01 13:33 | Outpatient (REF) | payer MEDICARE, BC, SELFPAY ==
[2025-02-01 14:02] LABS: % Basophils 0.7 % (0-2); % Eosinophils 4.3 % (0-6); % Immature Granulocytes 0.6 % (0-0.5); % Lymphocytes 18.8 % (20.5-51.1); % Monocytes 12.3 % (1.7-9.3); % Neutrophils 63.3 % (42.2-75.2); Absolute Basophils 0.1 10^3/uL (0-0.2); Absolute Eosinophils 0.4 10^3/uL (0-0.7); Absolute Immature Granulocytes 0.1 10^3/uL (0-0.05); Absolute Lymphocytes 1.6 10^3/uL (1.2-3.4); Absolute Neutrophils 5.4 10^3/uL (1.4-6.5); Hematocrit 32.3 % (37.0-47.0); Hemoglobin 10.5 g/dL (12.0-16.0); Mean Corp Hgb Conc. 32.5 g/dL (33.0-37.0); Mean Corpuscular Hgb 32.6 pg (27.0-31.0); Mean Corpuscular Volume 100.3 fL (81.0-99.0); Mean Platelet Volume 9.5 fL (7.4-10.4); Nucleated Red Blood Cells % 0 %; Platelet Count 572 10^3/uL (130-400); Red Blood Cell Count 3.22 10^6/uL (4.20-5.40); Red Cell Dist. Width 16.9 % (11.5-14.5); White Blood Cell Count 8.5 10^3/uL (4.8-10.8)
[2025-02-01 14:34] LABS: ALT (SGPT) 20 U/L (0-35); AST (SGOT) 42 U/L (14-36); Albumin 3.8 g/dl (3.5-5.0); Alkaline Phosphatase 158 U/L (38-126); Blood Urea Nitrogen 13 mg/dl (7-17); Calcium 9.7 mg/dl (8.4-10.2); Carbon Dioxide 23 mmol/L (22-30); Chloride 99 mmol/L (98-107); Glucose 139 mg/dl (70-99); Potassium 4.1 mmol/L (3.5-5.1); Sodium 136 mmol/L (135-145); Total Bilirubin 0.6 mg/dl (0.2-1.3); Total Protein 7.1 g/dl (6.3-8.2); eGFR > 60.00
== END ==
LOC: REG 13:33
PROVIDERS: ATTENDING PHYSICIAN Internal Medicine Hematology & Oncology; FAMILY PHYSICIAN Internal Medicine
DX: C18.1 Malignant neoplasm of appendix (principal)
CPT/HCPCS: 36415; 80053; 85025

== ENCOUNTER → 2025-02-02 15:59 | Outpatient (REF) | payer MEDICARE, BC, SELFPAY ==
[2025-02-02 11:21] LABS: Folate 17.7 ng/ml (2.76-20); Vitamin B12 356 pg/ml (239-931)
[2025-02-02 16:03] LABS: Iron 42 ug/dl (37-170)
[2025-02-02 16:13] LABS: Percent Saturation 22 % (20-50); Total Iron Binding Capacity 190 ug/dl (265-497)
== END ==
LOC: OIDL 15:59
PROVIDERS: ATTENDING PHYSICIAN Nurse Practitioner Adult Health
DX: C18.1 Malignant neoplasm of appendix (principal); Z79.899 Other long term (current) drug therapy
CPT/HCPCS: 82607; 82728; 82746; 83540; 83550

== ENCOUNTER → 2025-02-14 12:07 | Outpatient (REF) | payer MEDICARE, BC, SELFPAY ==
[2025-02-14 13:08] LABS: Hematocrit 30.4 % (37.0-47.0); Hemoglobin 9.8 g/dL (12.0-16.0); Mean Corp Hgb Conc. 32.2 g/dL (33.0-37.0); Mean Corpuscular Hgb 32.1 pg (27.0-31.0); Mean Corpuscular Volume 99.7 fL (81.0-99.0); Mean Platelet Volume 11.6 fL (7.4-10.4); Platelet Count 164 10^3/uL (130-400); Red Blood Cell Count 3.05 10^6/uL (4.20-5.40); Red Cell Dist. Width 18.5 % (11.5-14.5)
[2025-02-14 13:11] LABS: ALT (SGPT) 15 U/L (0-35); AST (SGOT) 28 U/L (14-36); Albumin 3.7 g/dl (3.5-5.0); Alkaline Phosphatase 180 U/L (38-126); Blood Urea Nitrogen 6 mg/dl (7-17); Carbon Dioxide 23 mmol/L (22-30); Chloride 100 mmol/L (98-107); Glucose 129 mg/dl (70-99); Potassium 2.9 mmol/L (3.5-5.1); Sodium 136 mmol/L (135-145); Total Bilirubin 0.5 mg/dl (0.2-1.3); Total Protein 6.3 g/dl (6.3-8.2); eGFR > 60.00
[2025-02-14 14:19] LABS: Absolute Neutrophils -Man Diff 15.2 10^3/uL (1.4-6.5); Band Neutrophils 10 % (0-3); Eosinophils 2 % (0-6); Lymphocytes 12 % (20-51); Monocytes 9 % (2-9); Normal RBC Morphology No; Nucleated Red Blood Cells 4 (-); Platelets Checked Yes; Segmented Neutrophils 66 % (42-75)
[2025-02-14 14:20] LABS: Anisocytosis 1+; Basophilic Stippling FEW; Hypochromasia 2+; Polychromasia 2+; Target Cells FEW
[2025-02-14 14:21] LABS: Howell Jolly Bodies FEW; Total Cells Counted 100
== END ==
LOC: REG 12:07
PROVIDERS: ATTENDING PHYSICIAN Internal Medicine Hematology & Oncology; FAMILY PHYSICIAN Internal Medicine
DX: C18.1 Malignant neoplasm of appendix (principal); E87.6 Hypokalemia
CPT/HCPCS: 36415; 80053; 85025

== ENCOUNTER → 2025-02-28 11:35 | Outpatient (REF) | payer MEDICARE, BC, SELFPAY ==
[2025-02-28 13:06] LABS: Hematocrit 29.2 % (37.0-47.0); Hemoglobin 9.6 g/dL (12.0-16.0); Mean Corp Hgb Conc. 32.9 g/dL (33.0-37.0); Mean Corpuscular Hgb 33.2 pg (27.0-31.0); Mean Platelet Volume 11.4 fL (7.4-10.4); Platelet Count 173 10^3/uL (130-400); Red Blood Cell Count 2.89 10^6/uL (4.20-5.40); Red Cell Dist. Width 21.5 % (11.5-14.5); White Blood Cell Count 34.1 10^3/uL (4.8-10.8)
[2025-02-28 13:43] LABS: % Basophils 0.1 % (0-2); % Eosinophils 0.6 % (0-6); % Immature Granulocytes 5.1 % (0-0.5); % Lymphocytes 7.4 % (20.5-51.1); % Neutrophils 74.8 % (42.2-75.2); Absolute Basophils 0.1 10^3/uL (0-0.2); Absolute Eosinophils 0.2 10^3/uL (0-0.7); Absolute Immature Granulocytes 1.7 10^3/uL (0-0.05); Absolute Lymphocytes 2.5 10^3/uL (1.2-3.4); Absolute Monocytes 4.1 10^3/uL (0.1-0.6); Absolute Neutrophils 25.5 10^3/uL (1.4-6.5); Nucleated Red Blood Cells % 4.9 %
[2025-02-28 13:53] LABS: ALT (SGPT) 15 U/L (0-35); AST (SGOT) 25 U/L (14-36); Albumin 3.7 g/dl (3.5-5.0); Alkaline Phosphatase 197 U/L (38-126); Blood Urea Nitrogen 9 mg/dl (7-17); Calcium 9.1 mg/dl (8.4-10.2); Carbon Dioxide 22 mmol/L (22-30); Chloride 105 mmol/L (98-107); Glucose 93 mg/dl (70-99); Sodium 140 mmol/L (135-145); Total Bilirubin 0.3 mg/dl (0.2-1.3); eGFR > 60.00
== END ==
LOC: REG 11:35
PROVIDERS: ATTENDING PHYSICIAN Internal Medicine Hematology & Oncology; FAMILY PHYSICIAN Internal Medicine
DX: C18.1 Malignant neoplasm of appendix (principal); E87.6 Hypokalemia
CPT/HCPCS: 36415; 80053; 85025

== ENCOUNTER → 2025-03-14 12:32 | Outpatient (REF) | payer MEDICARE, BC, SELFPAY ==
[2025-03-14 14:44] LABS: Hematocrit 34.7 % (37.0-47.0); Mean Corp Hgb Conc. 31.7 g/dL (33.0-37.0); Mean Corpuscular Hgb 33.2 pg (27.0-31.0); Mean Corpuscular Volume 104.8 fL (81.0-99.0); Platelet Count 272 10^3/uL (130-400); Red Blood Cell Count 3.31 10^6/uL (4.20-5.40); White Blood Cell Count 16.3 10^3/uL (4.8-10.8)
[2025-03-14 15:20] LABS: Absolute Neutrophils -Man Diff 9.4 10^3/uL (1.4-6.5); Anisocytosis 1+; Band Neutrophils 0 % (0-3); Eosinophils 3 % (0-6); Hypochromasia 1+; Lymphocytes 17 % (20-51); Metamyelocytes 1 % (-); Monocytes 18 % (2-9); Myelocytes 3 % (-); Normal RBC Morphology No; Nucleated Red Blood Cells 8 (-); Platelets Checked Yes; Segmented Neutrophils 58 % (42-75)
[2025-03-14 15:21] LABS: Acanthocytes 1+; Basophilic Stippling 1+; Howell Jolly Bodies 1+; Ovalocytes 1+; Polychromasia 1+; Stomatocytes 1+; Target Cells 1+; Total Cells Counted 100
[2025-03-14 15:29] LABS: ALT (SGPT) 23 U/L (0-35); AST (SGOT) 28 U/L (14-36); Albumin 4.4 g/dl (3.5-5.0); Alkaline Phosphatase 201 U/L (38-126); Blood Urea Nitrogen 10 mg/dl (7-17); Calcium 9.6 mg/dl (8.4-10.2); Carbon Dioxide 18 mmol/L (22-30); Chloride 109 mmol/L (98-107); Glucose 126 mg/dl (70-99); Potassium 3.5 mmol/L (3.5-5.1); Sodium 143 mmol/L (135-145); Total Bilirubin 0.4 mg/dl (0.2-1.3); Total Protein 6.7 g/dl (6.3-8.2); eGFR > 60.00
== END ==
LOC: REG 12:32
PROVIDERS: ATTENDING PHYSICIAN Internal Medicine Hematology & Oncology; FAMILY PHYSICIAN Internal Medicine
DX: C18.1 Malignant neoplasm of appendix (principal); E87.6 Hypokalemia
CPT/HCPCS: 36415; 80053; 85025

== ENCOUNTER → 2025-03-28 12:08 | Outpatient (REF) | payer MEDICARE, BC, SELFPAY ==
[2025-03-28 13:20] LABS: Hematocrit 32.3 % (37.0-47.0); Hemoglobin 10.7 g/dL (12.0-16.0); Mean Corp Hgb Conc. 33.1 g/dL (33.0-37.0); Mean Corpuscular Hgb 35.2 pg (27.0-31.0); Mean Corpuscular Volume 106.3 fL (81.0-99.0); Mean Platelet Volume 10.9 fL (7.4-10.4); Platelet Count 257 10^3/uL (130-400); Red Blood Cell Count 3.04 10^6/uL (4.20-5.40); Red Cell Dist. Width 23.9 % (11.5-14.5); White Blood Cell Count 21.1 10^3/uL (4.8-10.8)
[2025-03-28 13:21] LABS: ALT (SGPT) 19 U/L (0-35); AST (SGOT) 24 U/L (14-36); Albumin 3.6 g/dl (3.5-5.0); Alkaline Phosphatase 168 U/L (38-126); Blood Urea Nitrogen 9 mg/dl (7-17); Calcium 9.5 mg/dl (8.4-10.2); Carbon Dioxide 26 mmol/L (22-30); Chloride 104 mmol/L (98-107); Glucose 109 mg/dl (70-99); Potassium 4.3 mmol/L (3.5-5.1); Sodium 141 mmol/L (135-145); Total Bilirubin 0.3 mg/dl (0.2-1.3); Total Protein 5.9 g/dl (6.3-8.2); eGFR > 60.00
[2025-03-28 15:24] LABS: % Basophils 0.6 % (0-2); % Eosinophils 0.8 % (0-6); % Immature Granulocytes 2.2 % (0-0.5); % Lymphocytes 14.7 % (20.5-51.1); % Neutrophils 70.7 % (42.2-75.2); Absolute Basophils 0.1 10^3/uL (0-0.2); Absolute Eosinophils 0.2 10^3/uL (0-0.7); Absolute Immature Granulocytes 0.5 10^3/uL (0-0.05); Absolute Lymphocytes 3.1 10^3/uL (1.2-3.4); Absolute Monocytes 2.3 10^3/uL (0.1-0.6); Absolute Neutrophils 14.9 10^3/uL (1.4-6.5); Absolute Neutrophils -Man Diff 16.8 10^3/uL (1.4-6.5); Atypical Lymphocytes 2 %; Band Neutrophils 8 % (0-3); Lymphocytes 10 % (20-51); Monocytes 8 % (2-9); Normal RBC Morphology No; Nucleated Red Blood Cells % 2.2 %; Platelets Checked Yes; Segmented Neutrophils 72 % (42-75)
[2025-03-28 15:25] LABS: Anisocytosis 1+; Basophilic Stippling 1+; Macrocytosis 1+; Polychromasia 1+; Target Cells 1+; Total Cells Counted 100
[2025-03-28 19:01] LABS: CEA 6.83 ng/ml
== END ==
LOC: REG 12:08
PROVIDERS: ATTENDING PHYSICIAN Internal Medicine Hematology & Oncology; FAMILY PHYSICIAN Internal Medicine; REFERRING PHYSICIAN Surgery Surgical Oncology
DX: C18.1 Malignant neoplasm of appendix (principal); E87.6 Hypokalemia; Z90.81 Acquired absence of spleen
CPT/HCPCS: 36415; 80053; 82378; 85025

== ENCOUNTER → 2025-04-11 11:46 | Outpatient (REF) | payer MEDICARE, BC, SELFPAY ==
[2025-04-11 13:42] LABS: Hematocrit 28.3 % (37.0-47.0); Hemoglobin 9.4 g/dL (12.0-16.0); Mean Corp Hgb Conc. 33.2 g/dL (33.0-37.0); Mean Corpuscular Hgb 36.3 pg (27.0-31.0); Mean Corpuscular Volume 109.3 fL (81.0-99.0); Mean Platelet Volume 11.3 fL (7.4-10.4); Platelet Count 178 10^3/uL (130-400); Red Blood Cell Count 2.59 10^6/uL (4.20-5.40)
[2025-04-11 14:22] LABS: % Basophils 0.5 % (0-2); % Eosinophils 1.3 % (0-6); % Immature Granulocytes 0.7 % (0-0.5); % Monocytes 13.6 % (1.7-9.3); % Neutrophils 66.9 % (42.2-75.2); Absolute Basophils 0.1 10^3/uL (0-0.2); Absolute Eosinophils 0.2 10^3/uL (0-0.7); Absolute Immature Granulocytes 0.1 10^3/uL (0-0.05); Absolute Lymphocytes 2.2 10^3/uL (1.2-3.4); Absolute Monocytes 1.8 10^3/uL (0.1-0.6); Absolute Neutrophils 8.7 10^3/uL (1.4-6.5); Nucleated Red Blood Cells % 2.8 %
[2025-04-11 14:23] LABS: Anisocytosis 1+; Hypochromasia 2+; Normal RBC Morphology No; Ovalocytes 1+; Polychromasia 1+; Target Cells 1+
[2025-04-11 15:20] LABS: ALT (SGPT) 16 U/L (0-35); AST (SGOT) 23 U/L (14-36); Albumin 3.8 g/dl (3.5-5.0); Alkaline Phosphatase 140 U/L (38-126); Blood Urea Nitrogen 11 mg/dl (7-17); Calcium 8.8 mg/dl (8.4-10.2); Carbon Dioxide 20 mmol/L (22-30); Chloride 114 mmol/L (98-107); Glucose 105 mg/dl (70-99); Potassium 3.9 mmol/L (3.5-5.1); Sodium 141 mmol/L (135-145); Total Bilirubin 0.6 mg/dl (0.2-1.3); Total Protein 5.9 g/dl (6.3-8.2); eGFR > 60.00
== END ==
LOC: REG 11:46
PROVIDERS: ATTENDING PHYSICIAN Internal Medicine Hematology & Oncology; FAMILY PHYSICIAN Internal Medicine
DX: C18.1 Malignant neoplasm of appendix (principal); E87.6 Hypokalemia
CPT/HCPCS: 36415; 80053; 85025

== ENCOUNTER → 2025-05-11 15:14 | Outpatient (REF) | payer MEDICARE, BC, SELFPAY ==
[2025-05-11 12:02] LABS: % Basophils 1.2 % (0-2); % Eosinophils 1.9 % (0-6); % Lymphocytes 26.1 % (20.5-51.1); % Monocytes 19.8 % (1.7-9.3); Absolute Basophils 0.1 10^3/uL (0-0.2); Absolute Eosinophils 0.1 10^3/uL (0-0.7); Absolute Lymphocytes 1.5 10^3/uL (1.2-3.4); Absolute Monocytes 1.1 10^3/uL (0.1-0.6); Absolute Neutrophils 2.9 10^3/uL (1.4-6.5); Hematocrit 30.7 % (37.0-47.0); Hemoglobin 10.3 g/dL (12.0-16.0); Mean Corp Hgb Conc. 33.6 g/dL (33.0-37.0); Mean Corpuscular Hgb 37.9 pg (27.0-31.0); Mean Corpuscular Volume 112.9 fL (81.0-99.0); Mean Platelet Volume 11.2 fL (7.4-10.4); Platelet Count 318 10^3/uL (130-400); Red Blood Cell Count 2.72 10^6/uL (4.20-5.40); Red Cell Dist. Width 18.2 % (11.5-14.5); White Blood Cell Count 5.7 10^3/uL (4.8-10.8)
[2025-05-11 12:38] LABS: ALT (SGPT) 14 U/L (0-35); AST (SGOT) 26 U/L (14-36); Albumin 3.6 g/dl (3.5-5.0); Alkaline Phosphatase 94 U/L (38-126); Blood Urea Nitrogen 10 mg/dl (7-17); Calcium 9.2 mg/dl (8.4-10.2); Carbon Dioxide 23 mmol/L (22-30); Chloride 110 mmol/L (98-107); Glucose 133 mg/dl (70-99); Magnesium 1.7 mg/dl (1.6-2.3); Potassium 4.6 mmol/L (3.5-5.1); Sodium 140 mmol/L (135-145); Total Bilirubin 0.5 mg/dl (0.2-1.3); Total Protein 5.9 g/dl (6.3-8.2); eGFR > 60.00
[2025-05-11 13:34] LABS: Vitamin B12 > 1000 pg/ml (239-931)
[2025-05-11 15:04] LABS: Folate > 20.0 ng/ml (2.76-20)
== END ==
LOC: OIDL 15:14
PROVIDERS: ATTENDING PHYSICIAN Internal Medicine Hematology & Oncology
DX: C18.1 Malignant neoplasm of appendix (principal); E87.6 Hypokalemia; I82.3 Embolism and thrombosis of renal vein; D51.9 Vitamin B12 deficiency anemia, unspecified
CPT/HCPCS: 80053; 82607; 82728; 82746; 83735; 85025

== ENCOUNTER → 2025-05-30 10:28 | Outpatient (REF) | payer MEDICARE, BC, SELFPAY ==
[2025-05-30 11:07] LABS: % Basophils 0.9 % (0-2); % Eosinophils 5.5 % (0-6); % Immature Granulocytes 0.2 % (0-0.5); % Lymphocytes 27.8 % (20.5-51.1); % Monocytes 14.7 % (1.7-9.3); % Neutrophils 50.9 % (42.2-75.2); Absolute Basophils 0.1 10^3/uL (0-0.2); Absolute Eosinophils 0.3 10^3/uL (0-0.7); Absolute Lymphocytes 1.5 10^3/uL (1.2-3.4); Absolute Monocytes 0.8 10^3/uL (0.1-0.6); Absolute Neutrophils 2.8 10^3/uL (1.4-6.5); Hematocrit 28.7 % (37.0-47.0); Hemoglobin 9.5 g/dL (12.0-16.0); Mean Corp Hgb Conc. 33.1 g/dL (33.0-37.0); Mean Corpuscular Hgb 36.8 pg (27.0-31.0); Mean Corpuscular Volume 111.2 fL (81.0-99.0); Mean Platelet Volume 10.3 fL (7.4-10.4); Nucleated Red Blood Cells % 0 %; Platelet Count 295 10^3/uL (130-400); Red Blood Cell Count 2.58 10^6/uL (4.20-5.40); Red Cell Dist. Width 14.7 % (11.5-14.5); White Blood Cell Count 5.4 10^3/uL (4.8-10.8)
[2025-05-30 14:30] LABS: ALT (SGPT) 11 U/L (0-35); AST (SGOT) 25 U/L (14-36); Albumin 3.7 g/dl (3.5-5.0); Alkaline Phosphatase 69 U/L (38-126); Blood Urea Nitrogen 11 mg/dl (7-17); Calcium 9.4 mg/dl (8.4-10.2); Carbon Dioxide 26 mmol/L (22-30); Chloride 113 mmol/L (98-107); Glucose 101 mg/dl (70-99); Potassium 3.9 mmol/L (3.5-5.1); Sodium 143 mmol/L (135-145); Total Bilirubin 0.7 mg/dl (0.2-1.3); eGFR > 60.00
[2025-05-30 19:05] LABS: CEA 3.91 ng/ml
== END ==
LOC: REG 10:28
PROVIDERS: ATTENDING PHYSICIAN Surgery Surgical Oncology; FAMILY PHYSICIAN Internal Medicine
DX: C18.1 Malignant neoplasm of appendix (principal)
CPT/HCPCS: 36415; 80053; 82378; 85025

== ENCOUNTER → 2025-08-31 11:36 | Outpatient (REF) | payer MEDICARE, BC, SELFPAY ==
[2025-08-31 12:50] LABS: Hematocrit 34.1 % (37.0-47.0); Hemoglobin 10.9 g/dL (12.0-16.0); Mean Corp Hgb Conc. 32.0 g/dL (33.0-37.0); Mean Corpuscular Volume 102.1 fL (81.0-99.0); Nucleated Red Blood Cells % 0 %; Platelet Count 275 10^3/uL (130-400); Red Cell Dist. Width 14.6 % (11.5-14.5)
[2025-08-31 14:33] LABS: CEA 2.91 ng/ml
[2025-08-31 15:09] LABS: ALT (SGPT) 16 U/L (0-35); AST (SGOT) 27 U/L (14-36); Albumin 4.3 g/dl (3.5-5.0); Alkaline Phosphatase 66 U/L (38-126); Blood Urea Nitrogen 18 mg/dl (7-17); Calcium 9.4 mg/dl (8.4-10.2); Carbon Dioxide 27 mmol/L (22-30); Chloride 106 mmol/L (98-107); Glucose 120 mg/dl (70-99); Potassium 4.1 mmol/L (3.5-5.1); Sodium 139 mmol/L (135-145); Total Protein 6.8 g/dl (6.3-8.2); eGFR > 60.00
== END ==
LOC: REG 11:36
PROVIDERS: ATTENDING PHYSICIAN Surgery Surgical Oncology; FAMILY PHYSICIAN Internal Medicine
DX: C18.1 Malignant neoplasm of appendix (principal)
CPT/HCPCS: 36415; 80053; 82378; 85025

== ENCOUNTER → 2025-11-02 08:28 | Outpatient (REF) | payer MEDICARE, BC, SELFPAY ==
[2025-11-02 08:52] LABS: Hematocrit 35.7 % (37.0-47.0); Hemoglobin 12.0 g/dL (12.0-16.0); Mean Corp Hgb Conc. 33.6 g/dL (33.0-37.0); Mean Corpuscular Volume 105.0 fL (81.0-99.0); Nucleated Red Blood Cells % 0 %; Platelet Count 258 10^3/uL (130-400); Red Cell Dist. Width 14.1 % (11.5-14.5)
[2025-11-02 10:21] LABS: ALT (SGPT) 18 U/L (0-35); AST (SGOT) 30 U/L (14-36); Albumin 4.5 g/dl (3.5-5.0); Alkaline Phosphatase 66 U/L (38-126); Blood Urea Nitrogen 21 mg/dl (7-17); Calcium 9.5 mg/dl (8.4-10.2); Carbon Dioxide 27 mmol/L (22-30); Chloride 106 mmol/L (98-107); Glucose 121 mg/dl (70-99); Potassium 4.0 mmol/L (3.5-5.1); Sodium 138 mmol/L (135-145); Total Protein 7.5 g/dl (6.3-8.2); eGFR > 60.00
== END ==
LOC: RAD 08:28
PROVIDERS: ATTENDING PHYSICIAN Internal Medicine Rheumatology
DX: Z13.820 Encounter for screening for osteoporosis (principal); M81.0 Age-related osteoporosis without current pathological fracture; R93.5 Abnormal findings on diagnostic imaging of other abdominal regions, including retroperitoneum
CPT/HCPCS: 36415; 77080; 80053; 85025